=== PATIENT | male | born 1950 | race Caucasian/White ===

== ENCOUNTER 2024-04-18 10:49 | Outpatient (CLI) | payer MEDICARE, BC ==
[2024-04-18] MEDS ORDERED: GADOTERATE MEGLUMINE 7.5 MMOL/15 ML VIAL IV ONE (14:38)
== END 2024-04-18 23:59 | disposition home or self-care (01) ==
LOC: MRI 10:49
PROVIDERS: ATTEND Nurse Practitioner
DX: M51.27 Other intervertebral disc displacement, lumbosacral region (principal); M48.07 Spinal stenosis, lumbosacral region; M43.8X4 Other specified deforming dorsopathies, thoracic region; M51.46 Schmorl's nodes, lumbar region; G95.20 Unspecified cord compression; R53.1 Weakness; R20.2 Paresthesia of skin
CPT/HCPCS: 72157; 72158; A9575

== ENCOUNTER 2025-02-24 11:24 | Outpatient (CLI) | payer MEDICARE, BC ==
[2025-02-24 11:51] LABS: BILIRUBIN,URINE NEGATIVE (Neg); COLOR,URINE YELLOW (Yellow); GLUCOSE, URINE NEGATIVE (Neg); KETONES,URINE 40 mg/dl (Neg); LEUKOCYTE ESTERASE ,URINE MODERATE (Neg); NITRITES, URINE POSITIVE (Neg); OCCULT BLOOD,URINE SMALL (Neg); PROTEIN,URINE 30 mg/dl (Neg); UROBILINOGEN,URINE 0.2 E.U/dL (0.2-1.0)
[2025-02-24 11:56] LABS: UA COLLECTION TYPE NON-SPECIFIED
[2025-02-24 11:57] LABS: CLARITY,URINE SLIGHTLY CLOUDY (Clear)
[2025-02-24 11:58] LABS: BACTERIA,URINE 3+ /HPF (Neg); SQUAMOUS EPITHELIAL CELL,UR FEW /LPF (FEW); WBC,URINE TNTC /HPF (0-4)
[2025-02-24 11:59] LABS: WBC CLUMPS,URINE FEW /HPF (NEGATIVE)
== END 2025-02-24 23:59 | disposition home or self-care (01) ==
LOC: LAB 11:24
PROVIDERS: ATTEND Family Medicine
DX: N39.0 Urinary tract infection, site not specified (principal)
CPT/HCPCS: 81001; 87088

== ENCOUNTER 2025-02-26 13:57 | Inpatient (IN) | payer MEDICARE, BC ==
[~2025-02-26] VITALS: Ht 172.7 cm; Wt 58.0 kg
[2025-02-26 14:29] LABS: LEUKOCYTE ESTERASE ,URINE MODERATE (Neg); NITRITES, URINE POSITIVE (Neg); OCCULT BLOOD,URINE MODERATE (Neg)
--- NOTE | 2025-02-26 14:31 | RADIOLOGY REPORT ---
EXAM: DI CHEST,SINGLE VIEW Indication: sepsis alert Technique: Single frontal view of the chest was obtained Comparison: None FINDINGS: Lines and Tubes: None Lungs: No focal consolidation. Pleura: No effusion. No pneumothorax. Cardiomediastinal contours: Unremarkable Bones: No acute osseous abnormality. IMPRESSION: No acute cardiopulmonary disease.
[2025-02-26 14:33] LABS: UA COLLECTION TYPE FOLEY CATH
[2025-02-26 14:35] LABS: CAL OXALATE CRYSTALS FEW /HPF (NEGATIVE); SQUAMOUS EPITHELIAL CELL,UR FEW /LPF (FEW); WBC CLUMPS,URINE MODERATE /HPF (NEGATIVE)
[2025-02-26 14:35] LABS: MEAN PLATELET VOLUME 6.6 FL (7.4-10.4); RED CELL DISTRIBUTION WIDTH 18.0 % (11.5-14.5)
[2025-02-26 14:46] LABS: CREATININE 1.14 MG/DL (0.60-1.10); TOTAL CARBON DIOXIDE 26.3 MMOL/L (24-32); eCRCL 42 ML/MIN; eGFR 62 ML/MIN
--- NOTE | 2025-02-26 15:52 | Physician Documentation ---
History of Present Illness ~ Chief Complaint: Urinary Symptoms Stated Complaint: ALOC Time Seen by MD: 14:44 Mode of Arrival: EMS HPI History, review of systems, physical examination are limited secondary to clinical condition This is a 74-year-old gentleman with a history of recurrent UTIs and inguinal Rosario catheter who comes in for evaluation of altered mental status and positive UTI of the outside facility, however he is not on antibiotics because they are waiting for the culture. The gentleman himself tells me that he feels tired. He denies any headache, chest pain, difficulty breathing, nausea, vomiting, diarrhea, black stools or blood per rectum. Record review indicates that he is on Xarelto for paroxysmal AFib and does have history of anemia. Medication Reconciliation Allergies: Coded Allergies: No Known Allergies (Unverified , 02/26/25) Past Medical History Smoking Status: Never smoker Review of Systems ROS Limited as above Physical Exam Vital Signs: Temperature: 97.8, Source: Oral, Heart Rate: 81, Respiratory Rate: 17, BP: 124/82, Pulse Oximetry: 96, Weight: 54.000 Oxygen Flow Rate: 0 Physical Exam GENERAL: Awake and alert and oriented to self, no apparent distress, cachectic and very pale appearing, answers questions to the best of his ability of, follows commands appropriately. Examined in bed 6. HEENT: Atraumatic, normocephalic, pupils equal, extraocular muscles intact, sclerae anicteric, mucus membranes moist, oropharynx is clear, no stridor. NECK: supple, full active range of motion, trachea midline, no thyromegaly, no lymphadenopathy, no JVD. CARDIOVASCULAR: regular rate/rhythm, no murmurs/gallops/rubs, Pulses are 2+ in all extremities and symmetric. Capillary refill less than 2 seconds. PULMONARY: Nonlabored, good air movement ,no respiratory distress, speaking in full sentences, clear to auscultation bilaterally, no wheezing, no ronchi, no rales, no accessory muscle use. GASTROINTESTINAL: Soft, non-tender, non-distended, normal active bowel sounds, no organomegaly, no pulsatile masses, no CVA tenderness. NEUROLOGIC: Awake with a altered mental status. Normal facial symmetry. Moves bilateral upper extremities symmetrically and with purpose. Lower extremities with contracted. No truncal ataxia. Speech is fluid without evidence of dysarthria or aphasia, no focal deficits appreciated. MUSCULOSKELETAL: There is full range of motion of all extremities. There is no joint pain or joint swelling or joint erythema. There is no muscle pain or tenderness or swelling. EXTREMITIES: warm, well-perfused, no cyanosis, no clubbing, no edema, no acute deformities. Skin: warm, dry, no rashes or lesions, no jaundice, no petechiae orpurpura. No ecchymosis. PSYCHIATRIC: Flat affect Progress Results/Orders Results/Orders Orders - LE YUSUF DO Culture Blood (02/26/25 14:05) Chest,Single View (02/26/25 14:13) Monitor (02/26/25 14:05) Saline Lock (02/26/25 14:05) Procalcitonin (02/26/25 14:05) Cult Urine + [employer] [address] [employer] (02/26/25 14:36) Type And Screen (02/26/25 15:02) Lrpc - No Active Bleeding (02/26/25 15:38) * Oxygen Saturation Check* (02/26/25 15:38) * Iv Access / Saline Lock * (02/26/25 15:38) Addional Order(S) (02/26/25 15:38) Transfusion Informed Consent (02/26/25 15:38) Ceftriaxone/T0n-Qmqwmyen 1gm (Rocephin 1 (02/26/25 15:40) Page Hospitalist (02/26/25 15:38) Fill Out Med Reconciliation (02/26/25 15:38) Completed Orders - LE YUSUF DO Cbc/Diff (02/26/25 14:05) Chest,Single View (02/26/25 14:13) BMP (02/26/25 14:05) Lacticsepsis (02/26/25 14:05) Ua W/Microscopic, Cult If Ind (02/26/25 14:18) Vital Signs 02/26/25 02/26/25 14:06 14:59 Temp 97.8 Pulse 81 Resp 16 17 B/P (MAP) 124/82 Pulse Ox 96 O2 Flow Rate 0 Laboratory Tests Test 02/26/25 14:18 02/26/25 14:21 Urine Specimen Description Rosario cath Urine Color Yellow Urine Clarity Cloudy Urine pH 5.5 Urine Specific [place] >=1.030 Urine Protein Trace Urine Glucose (UA) Negative Urine Ketones 40 H Urine Occult Blood Moderate H Urine Nitrite Positive H Urine Bilirubin Negative Urine Urobilinogen 0.2 Urine Leukocyte Esterase Moderate H Urine RBC 3-10 Urine WBC Tntc H Urine WBC Clumps Moderate Urine Squamous Epithelial Cells Few Urine Calcium Oxalate Crystals Few Urine Bacteria 2+ Urine Culture Indicated Indicated Volume Urine Centrifuged 6 ml Urine Comment Low volume White Blood Count 6.7 Red Blood Count 1.61 L Hemoglobin 4.7 *L Hematocrit 13.8 *L Mean Corpuscular Volume 85.7 Mean Corpuscular Hemoglobin 29.3 Mean Corpuscular Hemoglobin Concent 34.2 Red Cell Distribution Width 18.0 H Platelet Count 499 H Mean Platelet Volume 6.6 L Neutrophils (%) (Auto) 59.0 Lymphocytes (%) (Auto) 30.2 Monocytes (%) (Auto) 7.4 Eosinophils (%) (Auto) 2.6 Basophils (%) (Auto) 0.8 Neutrophils # (Auto) 4.0 Lymphocytes # (Auto) 2.0 Monocytes # (Auto) 0.5 Eosinophils # (Auto) 0.2 Basophils # (Auto) 0.1 CBC Comment Sodium Level 134 L Potassium Level 3.6 Chloride Level 98 L Carbon Dioxide Level 26.3 Anion Gap 10 Blood Urea Nitrogen 17 Creatinine 1.14 H Estimated GFR/1.73 m2 62 BUN/Creatinine Ratio 14.9 Glucose Level 92 Lactic Acid Level 0.5 Calcium Level 9.2 Albumin 1.8 L Chemistry Comments Microbiology Date/Time Source Procedure Growth Status 02/26/25 14:36 Urine Rosario Cath Urine Culture - Preliminary Culture received. Resulted Medical Decision Making Findings Facility Status: ED [facility], [facility] process The plan was discussed with the patient, who demonstrates clear understanding of the plan and is in agreement with the plan unless otherwise noted in the chart. All questions have been answered, all concerns were addressed unless otherwise documented. I was available throughout their ED stay for frequent reassessment and questio ns. Differential Diagnoses (considered and possible or likely): [Urinary tract infection, pyelitis, pyelonephritis, occult bacteremia, hypoglycemia, electrolyte derangement, given how pale he has some somewhat worried about anemia requiring transfusion, high-output heart failure.] ??Differential Diagnoses (considered and unlikely, not requiring evaluation currently): [No reported trauma, no new lateralizing signs.] MDM Data Please see HPI for the following: Independent Historians and external Records Review. Historian: Limited information for patient Independent Historians: ?[Record review] Medication Management: [Reviewed medication list] Social History and determinants: [Reviewed] Please see the body of the note for the following: Any independent interpreta tions of ECG, imaging studies. All vitals signs/haemodynamics, ordered tests were independently reviewed and interpreted by myself. Nursing triage complaint and vitals reviewed, additional nursing notes were reviewed as available and I agree unless otherwise noted or documented in contradiction in the chart Vital Signs: Independently reviewed Labs: Independently interpreted Imaging: Independently interpreted Old Medical Records: Independently reviewed, see HPI for relevant summary and information Pulse Oximetry: [98%] interpreted as [normal on room air] by me [Lockstitch Tunnel Elastic Operator: [Regular Rate, Regular rhythm, no ectopy, NSR] reviewed and interpreted by me] Additionally notably showing: [Hemodynamics reviewed. The patient isn't febrile, not tachycardic, no evidence of hypoxia or respiratory distress. CBC shows critical anemia requiring transfusion. Metabolic panel notable for mild elevation of creatinine. UA is limited with a positive for UTI.] Tests considered but not ordered include: [Advanced imaging has been considerably does not appear to be necessary] EGD and colonoscopy can be done on an inpatient basis to investigate his critical anemia Social Determinants of Health Impact: Patient was evaluated in [facility], or [facility] [place] to healthcare due to below par ratio of patient to medical providers. [] Comorbid Conditions Impacting Present Evaluation and Care/Treatment: [Multiple, see list] Management Discussions with other Healthcare Providers: [Hospitalist regarding admission] Treatment and Disposition Medication Management (Given or considered): [Transfusion, antibiotics]. See EMR for details Consideration for Hospitalization/Escalation/Deescalation of Care: Admission for inpatient management has been considered, and is necessary for further management of his altered mental status, UTI, critical anemia requiring transfusion and investigating the source of blood loss ?ED Course:?[No clinical deterioration] ?Shared decision making:?[] Code status:?FULL Please see the full Electronic Medical Record for full details of nursing documentation, medications list, other records of complete past medical history and conditions, vital signs, laboratory studies, and any radiologic study interpretations by radiologists. Portions of this note were completed using dragon dictation software and as a result there may exist minor errors in spelling. I have reviewed elements of past family and social history and agree as included in note. Departure Disposition: 09 ADMITTED INPATIENT Admitted to Inpatient Unit: to hospitalist Impression: Primary Impression: Acute urinary tract infection Additional Impressions: Anemia requiring transfusions Altered mental status Anticoagulated on Xarelto Condition: Improved Referrals: NO PRIMARY CARE PROVIDER (PCP) Critical Care Note Critical Care Note CRITICAL CARE TIME: [45] minutes Treatments/Evaluations: Close monitoring and treatment of unstable vital signs, cardiorespiratory, and neurologic status, while maintaining tight balance of fluid, respiratory, and cardiac interventions. This time includes discussing the case with the patient and the patients family. This time does not include all procedures stated elsewhere in this record. This time also includes reviewing old records, labs and radiological studies. This time includes examining and re- examining the patient. Additionally, this time also includes arranging care with admitting and consulting physicians. Signature Scribe Signature: No scribe Attestation: This note accurately reflects clinical decisions, work performed by myself, DO PARAMJIT Hooks NICHOLAS M DO Feb 26, 2025 15:52
[2025-02-26] MEDS: CefTRIAXone/D5W-Rocephin 1gm 50 ML IV ONE (16:02)
--- NOTE | 2025-02-26 16:03 | ELECTROCARDIOGRAPH REPORT ---
[facility] Test Date: 2025-02-26 Test Time: 16:00:23 Pat Name: CORA VASQUES Department: [facility] Patient ID: [id number] Room: [place] [address] Gender: M Oral And Maxillofacial Surgery: : 1950 Requested By: LE YUSUF Order Number: [id number] Reading MD: Dr. Addison Davidson Measurements Intervals [place] Rate: 89 P: 56 VA: 139 QRS: -69 QRSD: 80 T: 43 QT: 363 QTc: 442 Interpretive Statements Sinus rhythm Left anterior fascicular block Abnormal R-wave progression, early transition Borderline T wave abnormalities Electronically Signed On 02-27-2025 9:16:[address] Addison Davidson Please click the below link to view image of tracing.
[2025-02-26 16:21] LABS: PRO BRAIN NATRIURETIC PEPTIDE 224 PG/ML (0-450)
[2025-02-26 16:38] VITALS: BP 136/88; PULSE 93; RESP 12; TEMP 98.4
[2025-02-26] MEDS ORDERED: magnesium hydroxide 30ml (MOM) UD suspension PO PRN (16:55)
[2025-02-26] MEDS ORDERED: mag hydrox/Alum hydrox/simeth 30ml oral suspension PO PRN (16:55)
[2025-02-26] MEDS ORDERED: magnesium sulf-water 2g/50mL 50 ML IV PRN (16:55)
[2025-02-26] MEDS ORDERED: magnesium Cl slow-release 64mg tablet PO PRN (16:55)
[2025-02-26] MEDS ORDERED: potassium Cl 20 mEq SR tablet PO PRN (16:55)
[2025-02-26] MEDS ORDERED: magnesium sulf-water 4G/100mL 100 ML IV PRN (16:55)
[2025-02-26] MEDS ORDERED: ondansetron/PF 4mg/2ml inj IV PRN (16:55)
[2025-02-26 16:59] VITALS: BP 120/67; PULSE 88; RESP 18; TEMP 97.7
--- NOTE | 2025-02-26 17:08 | CONSULTATION REPORT - RESIDENT ---
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 According to history provided by his [id number], Sonya ( Contact Number: [phone]), his confusion began acutely a few days prior and has progressively worsened, and was transferred for further evaluation. The patients baseline mental status was described as alert and oriented to person, though requiring assistance with all activities of daily living. The patients history of paraplegia began approximately one year ago when he experienced acute paralysis of the lower extremities, later attributed to a spinal cord infarction. Three months following this event, he was diagnosed with an appended spinal cord, confirmed through imaging, and underwent surgical intervention at [facility]. Postoperatively, the patient developed permanent incontinence of both stool and urine, requiring the placement of a chronic indwelling urinary catheter. The incontinence has been complicated by recurrent UTIs, typically managed with antibiotics during his subsequent stays at long-term care facilities, including [facility] and [facility]. On presentation, the patient was found to have a hemoglobin of 4.7 g/dL, significantly below his baseline. A stool occult blood test was positive, raising concern for gastrointestinal bleeding. Patients stools have been brown and formed, without visible melena or hematochezia. Sonya also described the patients challenges, particularly related to managing his chronic catheter and recurring UTIs. Despite treatment, his altered mental status was episodic and urinary symptoms worsened. On arrival, the patient was altered but arousable, with dry mucous membranes, tachycardia, and low blood pressure, consistent with anemia and possible dehydration. No overt signs of infection or sepsis were noted. 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 Paraplegia Urinary and fecal incontinence Recurrent UTIs, CAUTI Insomnia Hyperlipidemia Possible cauda equina syndrome TIA Past Surgical History Surgical History Comment Spinal cord ependymoma resection Patient was altered and could not report any history of surgeries Past Social History Social History Comment Could not be gathered as patient was altered ROS ROS Could not complete review of systems Exam Vitals: Vital Signs Date Time Temp Pulse Resp B/P (MAP) Pulse Ox O2 Delivery O2 Flow Rate FiO2 02/26/25 16:38 98.4 93 12 136/88 02/26/25 16:33 97 0 General: Awake , thin built, in apparent distress HEENT: Atraumatic, normocephalic, EOMI, anicteric sclera ; pale conjunctiva Neck: Trachea midline. Supple, full range of motion, no JVD Cardiac: Irregular rhythm rate with no murmurs all over the precordium. Respiratory: Equal breath sounds bilaterally, no tachypnea, no wheezing ,rub or rales, Chest wall is symmetric and without deformity. Gastrointestinal: Abdomen symmetric, non-distended, soft, non-tender, normal bowel sounds x4 quadrant, normoactive, no hepatosplenomegaly Musculoskeletal: Bilateral lower extremity: No pedal edema, no cyanosis, contractures present, no sensations, atrophy noted, power 0/5, tone 0 Neurological: Could not be performed Diagnostic Data Last Recorded Lab Results: 02/26/25 1421 02/26/25 1421 Additional Plan 1. Altered Sensorium Likely multifactorial: symptomatic anemia (Hb 4.7 g/dL), ongoing infection (UTI), and possible dehydration. No focal neurologic deficits to suggest acute stroke or intracranial pathology. Diagnostics: Monitor CBC, CMP,and consider head CT if no improvement or neurologic symptoms emerge. Management: Supportive care with intravenous hydration and correction of anemia. Continue close neurologic monitoring. 2. Symptomatic Anemia Possible upper versus lower GI bleed Critical hemoglobin of 4.7 g/dL with positive stool occult blood test suggests active gastrointestinal bleeding, though no overt melena or hematochezia noted. Anemia exacerbated by chronic illness and possible nutritional deficiencies. Transfusion: Continue packed red blood cell transfusions to maintain Hb >7 g/dL. Monitor post-transfusion hemoglobin. Plan for esophagogastroduodenoscopy tomorrow to identify the source of bleeding. Colonoscopy if EGD is negative Initiate pantoprazole 40 mg IV BID for suspected upper GI source. Hold Xarelto for now 3. Recurrent UTIs Chronic indwelling catheter is a likely source. Current UTI evidenced by symptomatic presentation, positive urinalysis, and recurrent episodes in history. High risk for resistant organisms given recurrent antibiotic use. ceftriaxone or piperacillin-tazobactam pending urine culture results. Adjust based on sensitivities. Replace the indwelling catheter. AFib Hyperlipidemia Diabetes mellitus Insomnia TIA Management per hospitalist team GI recommendations: Daily CBC and CMP monitoring. Regular vital sign monitoring Transfuse to maintain hemoglobin greater than 7 Code status: Full code (also confirmed with [id number]) DVT prophylaxis: Panfilo Limon MD Internal Medicine Resident, PGY-1 Date of Service: Feb 26, 2025 Billing Provider: ELLIOTT KIM MD, GAURAV, RES Feb 26, 2025 17:08
[2025-02-26 17:27] LABS: INR 1.2 INR
[2025-02-26] MEDS ORDERED: CHOL20003 PO (18:15)
[2025-02-26] MEDS ORDERED: OMEP40CA21 PO (18:15)
[2025-02-26] MEDS ORDERED: DULO60CA65 PO (18:15)
[2025-02-26] MEDS ORDERED: TAMS-55 PO (18:15)
[2025-02-26] MEDS ORDERED: RIVA10TA PO (18:15)
[2025-02-26] MEDS ORDERED: LIDOCAINE TP (18:15)
[2025-02-26] MEDS ORDERED: SOD CHLORIDE PO (18:15)
[2025-02-26] MEDS ORDERED: FLUC200T93 PO (18:15)
[2025-02-26] MEDS ORDERED: [UNRECOGNIZED DRUG - OTHER] PO (18:15)
[2025-02-26] MEDS ORDERED: PREG25CA19 PO (18:15)
[2025-02-26] MEDS ORDERED: BUSP5TAB3 PO (18:15)
[2025-02-26] MEDS ORDERED: ASPI-1265 PO (18:15)
[2025-02-26] MEDS ORDERED: METH1TAB32 PO (18:15)
[2025-02-26] MEDS ORDERED: [UNRECOGNIZED DRUG - CODE] PO (18:15)
[2025-02-26] MEDS ORDERED: MINERALS PO (18:15)
[2025-02-26] MEDS ORDERED: SENN-302 PO (18:15)
[2025-02-26] MEDS ORDERED: POLY510P31 PO (18:15)
[2025-02-26] MEDS ORDERED: HYDR-3964 PO (18:15)
[2025-02-26] MEDS ORDERED: FOLI1TAB27 PO (18:15)
[2025-02-26] MEDS ORDERED: MELA3TAB39 PO (18:15)
[2025-02-26] MEDS ORDERED: ROSU20TA98 PO (18:15)
[2025-02-26 18:41] VITALS: BP 152/94; PULSE 98; RESP 11; TEMP 98; O2SAT 100
[2025-02-26 18:51] LABS: EOSINOPHILS % (MANUAL) 2.0 % (0-6); LYMPHOCYTES % (MANUAL) 19.0 % (21-51); MONOCYTES % (MANUAL) 9.0 % (2-12); NEUTROPHILS % (MANUAL) 70.0 % (42-75); PLATELET ESTIMATE INCREASED
[2025-02-26] MEDS: normal saline 1000ml 1,000 ML IV ONE (19:21)
[2025-02-26] MEDS: K and/or MAG REPLACEMENT MC SCH (19:37)
--- NOTE | 2025-02-26 19:41 | HISTORY AND PHYSICAL-Residence ---
History & Physical Providers to CC Resident Creating Document: MARGUERITE CHAKRABORTY, RES ~ History of Present Illness Reason for Admit\Complaint: Anemia, UTI History of Present Illness The patient is a 74-year-old male with past medical history of anemia, depression, hyperlipidemia, paroxysmal AFib, lumbar spinal tumor, paralysis, who is a resident of [facility] facility for concerns of altered mental status. Patient is confused and very hard of hearing. History could not be obtained from the patient. As per the ED physician's records and GI consultation record, confusion progressed over last few days. On baseline, patient is alert and oriented but required assistance with ADLs. Patient is paraplegic and has chronic Rosario's. He has a history of recurrent UTIs. The patient is also on Xarelto for atrial fibrillation. Allergies: Coded Allergies: No Known Allergies (Unverified , 02/26/25) Home Medications Home Medications Active Reported Melatonin 3 Mg Tablet 3 Tab PO HS Xarelto (Rivaroxaban) 10 Mg Tablet 1 Tab PO DAILY [sod chloride 1 gm] 1 Tab PO DAILY Rosuvastatin Calcium 20 Mg Tablet 1 Tab PO HS Fluconazole 200 Mg Tablet 2 Tab PO DAILY take for 10 days, unk when pt started med Duloxetine HCl 60 Mg Capsule.dr 1 Cap PO DAILY Hydrocodon-Acetaminophen 5-325 (Hydrocodone Bit/Acetaminophen) 5 Mg-325 Mg Tablet 1 Tab PO Q6H PRN Vitamin D3 (Cholecalciferol (Vitamin D3)) 50 Mcg (2000 Unit) Tablet 1 Tab PO BID Flomax* (Tamsulosin HCl) 0.4 Mg Cap.sr.24h 1 Cap PO BID Senna Plus 8.6-50 mg Tablet (Sennosides/Docusate Sodium) 8.6 Mg-50 Mg Tablet 1 Tab PO DAILY Pregabalin 25 Mg Capsule 1 Cap PO BID [id number] (Polyethylene Glycol 3350) 17 Gram/Dose Powder 17 Gm PO DAILY Oyster Shell Calcium +D Tablet (Calcium Carbonate/Vitamin D3) 500 Mg Calcium-5 Mcg (200 Unit) Tablet 1 Tab PO DAILY [onedailytab/minerals] 1 Tab PO DAILY Methenamine Hippurate 1 Gram Tablet 1 Tab PO BID [lidocaine PA pad4%] 2 Patch TP QAM Folic Acid* (Folic Acid) Y Tab 1 Tab PO DAILY Buspar* (Buspirone HCl) 5 Mg Tablet 1 Tab PO BID Aspirin 81 Mg Tab.chew 1 Tab PO DAILY Prilosec (Omeprazole) 40 Mg Capsule 1 Cap PO DAILY Past Medical History Past Medical History AFib Diabetes mellitus Constipation BPH 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 Paraplegia Urinary and fecal incontinence Recurrent UTIs, CAUTI Insomnia Hyperlipidemia Possible cauda equina syndrome TIA Past Surgical History Surgical History Comment Spinal cord ependymoma resection Past Social History Social History Comment Resident of [facility] ROS ROS Could not be obtained Exam Vitals: Vital Signs Date Time Temp Pulse Resp B/P (MAP) Pulse Ox O2 Delivery O2 Flow Rate FiO2 02/26/25 18:41 98.0 98 11 152/94 (113) 100 Room Air 02/26/25 17:27 0 General: Elderly male, very frail appearing, alert but confused, not in acute distress Head: Normocephalic with an atraumatic Eyes: Pupils- 3mm, reacting to light, conjunctiva- anicteric, pale Nose and throat: No polyps, septum- normal, no mucosal ulcers Neck: Supple, no lymphadenopathy, no carotid bruit Respiratory: No use of accessory muscles of respiration, Bilateral normal vesiscular breath sounds heard. No wheeze, rhochi or creps Cardiac: S1-S2 heard, rhythm regular, no gallop/murmur Abdomen: non distended, no tenderness, no organomegaly, bowel sounds - heard Extremities: no clubbing, no pedal edema, stiff with contractures Skin: warm and dry, no rash, no purpura Neuro: Could not be performed Diagnostic Data Last Recorded Lab Results: 02/26/25 1421 02/26/25 1421 Diagnostic Data: Laboratory Tests Test 02/26/25 14:21 Prothrombin Time 12.2 SECONDS (9.0-12.0) H INR International Normalized Ratio 1.2 INR Coagulation Comments Advance Care Planning Advanced Care plannin - 30 Minutes Additional Plan A 74-year-old male with past medical history of AFib, recurrent UTIs, lumbar spinal tumor, anemia, was transferred to the ED for concerns of altered mental status. He is being admitted into the hospital for further evaluation and management. Plan: GI bleed likely upper GI Severe symptomatic anemia HB 4.7. 3 units of PRBC ordered in the ED. Started him on Protonix at 8 mg/hour. Stool occult positive. GI, Dr. Hess consulted. Endoscopy tomorrow. NPO from midnight. Q.4 H H&H monitoring. Follow up with iron studies, ESR, peripheral smear, haptoglobin and LDH. Acute metabolic encephalopathy Complicated UTI Urinalysis positive for leukocyte esterase, nitrites. Follow up with urine cultures. Continue IV ceftriaxone. IV fluids 1 L bolus and 100 mL/hour. No flank tenderness, possibly no pyelonephritis. MEETA likely secondary to vasomotor nephropathy Creatinine 1.14. Continue IV fluids and monitor. Paroxysmal atrial fibrillation Currently in sinus rhythm. Hold Xarelto. Hyperlipidemia On rosuvastatin 20 mg daily. Continue atorvastatin here. Depression Continue buspirone, duloxetine after medication reconciliation. Code Status: Full code, POLST papers at bedside DVT Prophylaxis: SCDs Analgesia/Sedation: Morphine Lines/Tubes: PIV GI Prophylaxis: Protonix Nutrition: Bedside swallow, heart healthy diet, NPO from midnight PT: Ordered Prognosis: Guarded Disposition: We will admit the patient into [facility]. Continue H&H monitoring. NPO from midnight and upper GI endoscopy tomorrow. Marguerite Chakraborty MD Internal Medicine Resident PGY-1 Date of Service: Feb 26, 2025 Billing Provider: RENA JONES MD,MARGUERITE DUCKWORTH, RES Feb 26, 2025 19:41
[2025-02-26 19:45] LABS: CREATININE 1.27 MG/DL (0.60-1.10); TOTAL CARBON DIOXIDE 28.5 MMOL/L (24-32); eCRCL 38 ML/MIN; eGFR 55 ML/MIN
[2025-02-26 19:47] LABS: % IRON SATURATION 26 % (11-46)
[2025-02-26 19:51] LABS: OCCULT BLOOD STOOL POSITIVE (Neg)
[2025-02-26 19:57] LABS: LACTATE DEHYDROGENASE 93 U/L (85-227); MEAN PLATELET VOLUME 7.0 FL (7.4-10.4); RED CELL DISTRIBUTION WIDTH 17.2 % (11.5-14.5)
[2025-02-26 20:00] VITALS: RESP 15; O2SAT 100
[2025-02-26] MEDS: lactobacillus rhamnosus 10,000 MMU CELLS/CAPSULE PO SCH (20:00)
[2025-02-26] MEDS: normal saline 1000ml 1,000 ML IV SCH (20:00)
[2025-02-26] MEDS: docusate sod 100mg capsule PO SCH (20:00)
[2025-02-26 20:18] LABS: EOSINOPHILS % (MANUAL) 3 % (0-6); LYMPHOCYTES % (MANUAL) 24 % (21-51); MONOCYTES % (MANUAL) 6 % (2-12); NEUTROPHILS % (MANUAL) 67 % (42-75); PLATELET ESTIMATE NORMAL
[2025-02-26 22:00] VITALS: BP 165/93; PULSE 75; RESP 15; TEMP 97.2; O2SAT 100
[2025-02-26] MEDS: pantoprazole 40MG/NS 100ML BAG 100 ML IV ONE (22:41)
[2025-02-26] MEDS: pantoprazole 40MG/NS 100ML BAG 100 ML IV SCH (22:46)
[2025-02-26 23:00] VITALS: BP 150/70
[2025-02-27] VITALS (12 sets, daily range): BP systolic 139–163; BP diastolic 77–94; PULSE 67–84; RESP 8–21; TEMP 97–98.6; O2SAT 94–99
[2025-02-27 00:14] LABS: MEAN PLATELET VOLUME 6.6 FL (7.4-10.4); RED CELL DISTRIBUTION WIDTH 17.1 % (11.5-14.5)
[2025-02-27 03:29] LABS: MEAN PLATELET VOLUME 6.7 FL (7.4-10.4); RED CELL DISTRIBUTION WIDTH 17.5 % (11.5-14.5)
[2025-02-27 03:43] LABS: CHOL/HDL RATIO 2.8 (0.00-4.99); CREATININE 1.07 MG/DL (0.60-1.10); LDL CHOLESTEROL 47 MG/DL (50-100); TOTAL CARBON DIOXIDE 25.0 MMOL/L (24-32); eCRCL 45 ML/MIN; eGFR 67 ML/MIN
[2025-02-27] MEDS: pantoprazole 40MG/NS 100ML BAG 100 ML IV ONE (03:51)
[2025-02-27 07:48] LABS: MEAN PLATELET VOLUME 7.1 FL (7.4-10.4); RED CELL DISTRIBUTION WIDTH 17.7 % (11.5-14.5)
[2025-02-27] MEDS: duloxetine 30mg CAPSULE.DR PO SCH (08:00)
[2025-02-27] MEDS: lactose-reduced food (Ensure Enlive) - 237ml bottle PO SCH (08:00)
[2025-02-27] MEDS: CefTRIAXone/D5W-Rocephin 1gm 50 ML IV SCH (09:46)
[2025-02-27] MEDS: sodium ferric gluc complex inj 125 MG in normal saline 100ml IV soln 100 ML IV SCH (10:53)
[2025-02-27 11:52] LABS: MEAN PLATELET VOLUME 6.9 FL (7.4-10.4); RED CELL DISTRIBUTION WIDTH 17.4 % (11.5-14.5)
[2025-02-27] MEDS ORDERED: propofol inj 20 ML IV ONE (14:44)
--- NOTE | 2025-02-27 15:26 | PROGRESS NOTE- Residence ---
Progress Note - Resident Providers to CC Resident Creating Document: YESI FOSTER RES ~ Antibiotic Timeout Antibiotic Ordered?: Yes Subjective Patient was seen and examined at bedside, was altered. Was unable to provide any comprehensive history. No acute overnight symptoms. Hemoglobin was stable at 9.3. EGD today by Dr. Salguero. Objective Vital Signs Date Time Temp Pulse Resp B/P (MAP) Pulse Ox O2 Delivery O2 Flow Rate FiO2 02/27/25 14:40 80 15 02/27/25 10:33 97.8 151/93 (112) 97 Room Air 02/27/25 08:00 0.0 Result Diagram: 02/27/25 1124 02/27/25 0315 Awake , thin built, in apparent distress HEENT: Atraumatic, normocephalic, EOMI, anicteric sclera ; pale conjunctiva Neck: Trachea midline. Supple, full range of motion, no JVD Cardiac: regular rhythm rate with no murmurs all over the precordium. Respiratory: Equal breath sounds bilaterally, no tachypnea, no wheezing ,rub or rales, Chest wall is symmetric and without deformity. Gastrointestinal: Abdomen symmetric, non-distended, soft, non-tender, normal bowel sounds x4 quadrant, normoactive, no hepatosplenomegaly Musculoskeletal: Bilateral lower extremity: No pedal edema, no cyanosis, contractures present, no sensations, atrophy noted, power 0/5, tone 0 Neurological: Could not be performed Coagulation Studies Laboratory Tests Test 02/26/25 14:21 Prothrombin Time 12.2 SECONDS (9.0-12.0) H INR International Normalized Ratio 1.2 INR Coagulation Comments Advance Care Planning Advanced Care plannin - 30 Minutes Assessment Assessment The patient is a 74-year-old male admitted for altered mental status, severe symptomatic anemia, and suspected gastrointestinal bleeding. His zaeuwhhi-hl-bdu reported altered mental sensorium, weakness and fatigue but denies having abdominal pain, nausea, vomiting, or black/tarry stools. No overt hematemesis or hematochezia has been observed. The patient has been compliant with NPO orders since midnight in preparation for endoscopy today. Plan Plan Labs: Hemoglobin: 9 g/dL post-transfusion (1 unit of PRBC in ED). (High possibility that the initial hemoglobin of 4.7 was incorrect) WBC: Normal. Creatinine: 1.12 mg/dL, improving with fluids. Urinalysis: Positive leukocyte esterase, nitrites. Imaging: No acute findings on chest X-ray. Metabolic encephalopathy secondary to recurrent UTIs Complicated UTI (CAUTI) (recurrent history) Outpatient records show Infection with Resistant Pseudomonas: History of positive blood cultures for candidemia Likely multifactorial: symptomatic anemia (Hb 4.7 g/dL), ongoing infection (UTI), and possible dehydration. No focal neurologic deficits to suggest acute stroke or intracranial pathology. Diagnostics: Monitor CBC, CMP,and consider head CT if no improvement or neurologic symptoms emerge. Management: Supportive care with intravenous hydration and correction of anemia. Continue close neurologic monitoring. Chronic indwelling catheter is a likely source. Current UTI evidenced by symptomatic presentation, positive urinalysis, and recurrent episodes in history. Replace indwelling catheter if necessary. Positive urinalysis with leukocyte esterase and nitrites; urine cultures pending. History of meropenem-resistant Pseudomonas infection per ID. Started on ceftolozane-tazobactam per Dr. Tol[place], ID. Per ID, patient was treated with fluconazole at [facility] for candidemia Repeat blood cultures ordered here Severe Symptomatic Anemia: Likely secondary to upper GI bleed. Positive stool occult blood supports a gastrointestinal source. Stable post-transfusion with hemoglobin trending upwards. Suspected GI Bleed: Endoscopy today to identify and potentially treat the source. Plan: EGD today to evaluate for upper GI bleed. Continue pantoprazole infusion. Daily CBC and CMP monitoring. Transfuse PRBCs as needed to maintain hemoglobin >7 g/dL. MEETA, prerenal- vasomotor nephropathy Improving with IV fluids. Other: Maintain supportive care with IV fluids at 100 mL/hour. Paroxysmal atrial fibrillation Gagan Vasc score 3 Currently in sinus rhythm. Hold Xarelto until further evaluation Hyperlipidemia On rosuvastatin 20 mg daily. Continue atorvastatin during his hospital stay here Depression Continue buspirone, duloxetine DVT Prophylaxis: Sequential compression devices (SCDs). Prognosis: Guarded. Disposition: Medical management for now. Await endoscopy results for further management. Yesi Foster MD Internal Medicine Resident, PGY-2 Date of Service: Feb 27, 2025 Billing Provider: RENA JONES MD, GAURAV, RES Feb 27, 2025 15:26
[2025-02-27] MEDS ORDERED: ceftolozone/tazobactam inj. 1.5 GM in normal saline 100ml IV soln 100 ML IV SCH (16:00)
[2025-02-27] MEDS: [UNRECOGNIZED DRUG - MIXTURE] IV SCH (16:53)
[2025-02-27 16:54] LABS: MEAN PLATELET VOLUME 7.0 FL (7.4-10.4); RED CELL DISTRIBUTION WIDTH 17.6 % (11.5-14.5)
[2025-02-27] MEDS: potassium Cl 40MEQ/1/2NS 520ml 520 ML IV PRN (16:55)
[2025-02-27] MEDS: NUT.TX.IMPAIRED DIGEST FXN (Ensure Clear) 237 ML PO SCH (18:00)
[2025-02-27 20:16] LABS: MEAN PLATELET VOLUME 6.9 FL (7.4-10.4); RED CELL DISTRIBUTION WIDTH 17.3 % (11.5-14.5)
[2025-02-27 23:15] LABS: MEAN PLATELET VOLUME 6.9 FL (7.4-10.4); RED CELL DISTRIBUTION WIDTH 17.5 % (11.5-14.5)
[2025-02-28] VITALS (8 sets, daily range): BP systolic 93–158; BP diastolic 53–96; PULSE 71–99; RESP 12–18; TEMP 96.9–98.8; O2SAT 94–100
[2025-02-28 03:07] LABS: CREATININE 0.97 MG/DL (0.60-1.10); TOTAL CARBON DIOXIDE 25.1 MMOL/L (24-32); eCRCL 53 ML/MIN; eGFR 75 ML/MIN
[2025-02-28] MEDS: potassium Cl 20 mEq SR tablet PO PRN (05:09)
[2025-02-28 06:34] LABS: MEAN PLATELET VOLUME 6.9 FL (7.4-10.4)
[2025-02-28 06:36] LABS: RED CELL DISTRIBUTION WIDTH 17.4 % (11.5-14.5)
[2025-02-28] MEDS: lactobacillus rhamnosus 10,000 MMU CELLS/CAPSULE PO SCH (08:00)
[2025-02-28 08:12] LABS: HAPTOGLOBIN 296 mg/dL (34-355)
[2025-02-28] MEDS: HYDROcodone/acetaminophen 5mg/325mg tablet PO PRN (09:04)
[2025-02-28 09:43] LABS: MEAN PLATELET VOLUME 6.9 FL (7.4-10.4); RED CELL DISTRIBUTION WIDTH 17.6 % (11.5-14.5)
--- NOTE | 2025-02-28 11:39 | PATHOLOGY REPORT ---
[facility] [address] [place] [address] SURGICAL PATHOLOGY REPORT CaseNumber: [id number] Surgeon:Heather Flores M.D. CLINICAL INFORMATION CLINICAL INFORMATION: Iron deficiency anemia secondary to chronic blood loss, melena. Duodenal mass, R/O malignancy. DIAGNOSIS DIAGNOSIS: A.SMALL BOWEL, DUODENAL BULB; BIOPSY - CONSISTENT WITH HETEROTOPIC GASTRIC MUCOSA. - NEGATIVE FOR DYSPLASIA AND CARCINOMA. DIAGNOSIS: B.STOMACH; BIOPSY - FUNDIC GLAND POLYP. DIAGNOSIS: C.STOMACH, ANTRUM; BIOPSY - NORMAL ANTRAL-TYPE GASTRIC MUCOSA. - NEGATIVE FOR INTESTINAL METAPLASIA. - NEGATIVE FOR H. PYLORI. MICROSCOPIC DESCRIPTION A. SMALL BOWEL, DUODENAL BULB MICROSCOPIC DESCRIPTION: 1 H&E stained slide is examined. It shows multiple fragments of villiform m ucosa composed of parietal cells and chief cells, underlying gastric foveolar type epithelium with mi ld reactive changes. 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 I do not see ba ckground normal duodenal mucosa. Endoscopic correlation is required. There is no evidence of dyspla jenny. B. STOMACH MICROSCOPIC DESCRIPTION: Performed. C. STOMACH, ANTRUM MICROSCOPIC DESCRIPTION: Reviewed is 1 H&E stained slide showing multiple levels of gastric antral-ty pe mucosa. I see no significant increase in acute or chronic inflammation. The glands are appropria tely spaced; I see no evidence of fibrosis. There is no evidence of dysplasia, intestinal metaplasia , or Helicobacter pylori. GROSS DESCRIPTION A. SMALL BOWEL, DUODENAL BULB GROSS DESCRIPTION: Received in a container of formalin labeled with the patient's name, number, and " duodenal bulb mass BX" are 4 pieces of cook 0.2-0.5 x 0.1 x 0.1 cm. The specimen is entirely submitted as A1. The time at which the specimen was removed was 1457. The time at which the specimen was place d in formalin was 1458. B. STOMACH GROSS DESCRIPTION: Received in a container of formalin labeled with the patient's name, number, and " gastric polyp" is a 0.3 cm piece of cook tissue. The specimen is entirely submitted as B1. The time at which the specimen was removed was 1456. The time at which the specimen was placed in formalin was 1 458. C. STOMACH, ANTRUM GROSS DESCRIPTION: Received in a container of formalin labeled with the patient's name, number, and " antrum BX" is a 0.4 x 0.2 x 0.1 cm piece of cook tissue. The specimen is entirely submitted as C1. The time at which the specimen was removed was 1455. The time at which the specimen was placed in formal in was 1458. Electronically signed by: Nilesh Pedroza, 02/28/2025 11:06:00 AM
[2025-02-28 14:01] LABS: ABSOLUTE RETICS # 29100 /CUMM (23000-93000)
--- NOTE | 2025-02-28 18:22 | PROGRESS NOTE- Residence ---
Progress Note - Resident Providers to CC Resident Creating Document: YESI FOSTER RES ~ Antibiotic Timeout Antibiotic Ordered?: No Subjective Patient was seen and examined at bedside, was alert and oriented today. In comparison to his admission, patient could answer questions and could also tell the name of his son. Had a conversation with patient's idtzxbkn-xp-xle who claims to continue full code status for now but however would reconsider her decision based on duodenal mass biopsy results. No acute overnight symptoms. Objective Vital Signs Date Time Temp Pulse Resp B/P (MAP) Pulse Ox O2 Delivery O2 Flow Rate FiO2 02/28/25 15:00 96.9 75 18 158/86 (110) 96 Room Air 02/28/25 08:00 0.0 Result Diagram: 02/28/25 0911 02/28/25 0245 Awake , thin built, in apparent distress HEENT: Atraumatic, normocephalic, EOMI, anicteric sclera ; pale conjunctiva Neck: Trachea midline. Supple, full range of motion, no JVD Cardiac: regular rhythm rate with no murmurs all over the precordium. Respiratory: Equal breath sounds bilaterally, no tachypnea, no wheezing ,rub or rales, Chest wall is symmetric and without deformity. Gastrointestinal: Abdomen symmetric, non-distended, soft, non-tender, normal bowel sounds x4 quadrant, normoactive, no hepatosplenomegaly Musculoskeletal: Bilateral lower extremity: No pedal edema, no cyanosis, contractures present, no sensations, atrophy noted, power 0/5, tone 0 Neurological: Could not be performed Coagulation Studies Laboratory Tests Test 02/26/25 14:21 Prothrombin Time 12.2 SECONDS (9.0-12.0) H INR International Normalized Ratio 1.2 INR Coagulation Comments Assessment Assessment The patient is a 74-year-old male admitted for altered mental status, severe symptomatic anemia, and suspected gastrointestinal bleeding. His hbeesrjz-lx-vpr reported altered mental sensorium, weakness and fatigue but denies having abdominal pain, nausea, vomiting, or black/tarry stools. No overt hematemesis or hematochezia has been observed. The patient has been compliant with NPO orders since midnight in preparation for endoscopy today. Plan Plan Labs: Hemoglobin: 9.1 today WBC: Normal. Creatinine: Normalized with fluids Urinalysis: Positive leukocyte esterase, nitrites. Imaging: No acute findings on chest X-ray. Metabolic encephalopathy secondary to recurrent UTIs Complicated UTI (CAUTI) (recurrent history) Outpatient records show Infection with Resistant Pseudomonas: History of positive blood cultures for candidemia at [facility] Likely multifactorial: symptomatic anemia (Hb 4.7 g/dL), ongoing infection (UTI), and possible dehydration. No focal neurologic deficits to suggest acute stroke or intracranial pathology. Diagnostics: Monitor CBC, CMP,and consider head CT if no improvement or neurologic symptoms emerge. Management: Supportive care with intravenous hydration and correction of anemia. Continue close neurologic monitoring. Chronic indwelling catheter is a likely source. Current UTI evidenced by symptomatic presentation, positive urinalysis, and recurrent episodes in history. Replace indwelling catheter if necessary. Positive urinalysis with leukocyte esterase and nitrites; urine cultures pending. History of meropenem-resistant Pseudomonas infection per ID. Started on ceftolozane-tazobactam per Dr. Tloedo, ID. Per ID, patient was treated with fluconazole at [facility] for candidemia Repeat blood cultures ordered here 02/28/2025: Blood cultures negative until now Continue ceftolozane and tazobactam Urine cultures at [facility] showed multidrug resistant Pseudomonas, only sensitive to tobramycin Severe Symptomatic Anemia: Likely secondary to upper GI bleed. Positive stool occult blood supports a gastrointestinal source. Stable post-transfusion with hemoglobin trending upwards. Suspected GI Bleed: Endoscopy today to identify and potentially treat the source. Plan: EGD today to evaluate for upper GI bleed. Continue pantoprazole infusion. Daily CBC and CMP monitoring. Transfuse PRBCs as needed to maintain hemoglobin >7 g/dL. 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 MEETA, prerenal- possibly vasomotor nephropathy Improving with IV fluids. Other: Maintain supportive care with IV fluids at 100 mL/hour. 02/28/2025: Resolved Paroxysmal atrial fibrillation Gagan Vasc score 3 Currently in sinus rhythm. Hold Xarelto until further evaluation 02/28/2025: Restarted Xarelto 10 mg daily from tomorrow, we will monitor hemoglobin post initiation of Xarelto Hyperlipidemia On rosuvastatin 20 mg daily. Continue atorvastatin during his hospital stay here Depression Continue buspirone, duloxetine Severe malnutrition Registered Dietitian Cristopher Dixon recommendations are ordered DVT Prophylaxis: Sequential compression devices (SCDs). Prognosis: Guarded. Disposition: Likely discharged in 1/2 days back to his nursing facility. Yesi Foster MD Internal Medicine Resident, PGY-2 Date of Service: Feb 28, 2025 Billing Provider: MARIO CASTRO DO Common Visit Codes: [id number] INP/OBS CARE(HIGH) YESI FOSTER, RES Feb 28, 2025 18:22 MARIO CASTRO DO Feb 28, 2025 18:55
[2025-03-01] VITALS (8 sets, daily range): BP systolic 123–150; BP diastolic 63–88; PULSE 70–89; RESP 14–20; TEMP 97.1–97.7; O2SAT 96–98
[2025-03-01 06:22] LABS: MEAN PLATELET VOLUME 6.9 FL (7.4-10.4); RED CELL DISTRIBUTION WIDTH 17.5 % (11.5-14.5)
[2025-03-01 06:46] LABS: CREATININE 0.92 MG/DL (0.60-1.10); TOTAL CARBON DIOXIDE 24.0 MMOL/L (24-32); eCRCL 56 ML/MIN; eGFR 80 ML/MIN
[2025-03-01] MEDS: rivaroxaban 10mg tablet PO SCH (10:47)
[2025-03-01] MEDS ORDERED: ceftolozone/tazobactam inj. 1.5 GM in normal saline 100ml IV soln 100 ML IV SCH (13:40)
[2025-03-01] MEDS: [UNRECOGNIZED DRUG - MIXTURE] IV SCH (16:44)
--- NOTE | 2025-03-01 16:52 | PROGRESS NOTE- Residence ---
Progress Note - Resident Providers to CC Resident Creating Document: YESI FOSTER RES ~ Antibiotic Timeout Antibiotic Ordered?: Yes Subjective Patient was seen and examined at bedside, was alert and oriented today. Patient claims that he wanted to speak to his family. Brother was at bedside, patient understands that he had urinary tract infection and also explained that he had developed paraplegia year ago and is well aware of his condition. Brother claims that they are searching for a different facility and did not want [facility] Objective Vital Signs Date Time Temp Pulse Resp B/P (MAP) Pulse Ox O2 Delivery O2 Flow Rate FiO2 03/01/25 09:13 16 03/01/25 08:00 98 Room Air 0.0 03/01/25 06:30 82 03/01/25 02:00 97.1 148/80 (102) Result Diagram: 03/01/25 0604 03/01/25 0604 Awake , thin built, not in distress today HEENT: Atraumatic, normocephalic, EOMI, anicteric sclera ; pale conjunctiva Neck: Trachea midline. Supple, full range of motion, no JVD Cardiac: regular rhythm rate with no murmurs all over the precordium. Respiratory: Equal breath sounds bilaterally, no tachypnea, no wheezing ,rub or rales, Chest wall is symmetric and without deformity. Gastrointestinal: Abdomen symmetric, non-distended, soft, non-tender, normal bowel sounds x4 quadrant, normoactive, no hepatosplenomegaly Musculoskeletal: Bilateral lower extremity: No pedal edema, no cyanosis, contractures present, no sensations, atrophy noted, power 0/5, tone 0 Neurological: No focal neurological deficits Coagulation Studies Laboratory Tests Test 02/26/25 14:21 Prothrombin Time 12.2 SECONDS (9.0-12.0) H INR International Normalized Ratio 1.2 INR Coagulation Comments Advance Care Planning Advanced Care plannin - 30 Minutes Assessment Assessment The patient is a 74-year-old male admitted for altered mental status, severe symptomatic anemia, and suspected gastrointestinal bleeding. His kufgdqzw-fv-ozp reported altered mental sensorium, weakness and fatigue but denies having abdominal pain, nausea, vomiting, or black/tarry stools. No overt hematemesis or hematochezia has been observed. The patient has been compliant with NPO orders since midnight in preparation for endoscopy today. Plan Plan Metabolic encephalopathy secondary to recurrent UTIs Complicated UTI (CAUTI) (recurrent history) Outpatient records show Infection with Resistant Pseudomonas: History of positive blood cultures for candidemia at [facility] Likely multifactorial: symptomatic anemia (Hb 4.7 g/dL), ongoing infection (UTI), and possible dehydration. No focal neurologic deficits to suggest acute stroke or intracranial pathology. Diagnostics: Monitor CBC, CMP,and consider head CT if no improvement or neurologic symptoms emerge. Management: Supportive care with intravenous hydration and correction of anemia. Continue close neurologic monitoring. Chronic indwelling catheter is a likely source. Current UTI evidenced by symptomatic presentation, positive urinalysis, and recurrent episodes in history. Replace indwelling catheter if necessary. Positive urinalysis with leukocyte esterase and nitrites; urine cultures pending. History of meropenem-resistant Pseudomonas infection per ID. Started on ceftolozane-tazobactam per Dr. Toledo, ID. Per ID, patient was treated with fluconazole at [facility] for candidemia Repeat blood cultures ordered here 02/28/2025: Blood cultures negative until now Continue ceftolozane and tazobactam Urine cultures at [facility] showed multidrug resistant Pseudomonas, only sensitive to tobramycin 03/01/2025: Had a conversation with today, she claimed that patient needs additional 5 days of IV antibiotic So patient will receive ceftriaxone and tazobactam until 03/05/2025 Case management on board, referrals have been made for transferred to rehab center Severe Symptomatic Anemia: Likely secondary to upper GI bleed. Positive stool occult blood supports a gastrointestinal source. Stable post-transfusion with hemoglobin trending upwards. Suspected GI Bleed: Endoscopy today to identify and potentially treat the source. Plan: EGD today to evaluate for upper GI bleed. Continue pantoprazole infusion. Daily CBC and CMP monitoring. Transfuse PRBCs as needed to maintain hemoglobin >7 g/dL. 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 03/01/2025: Continue Protonix IV 40 mg b.i.d. Patient will be discharged on ferrous sulfate, oral on discharge Duodenal biopsy results showed: HETEROTOPIC GASTRIC MUCOSA. NEGATIVE FOR DYSPLASIA AND CARCINOMA. MEETA, prerenal- possibly vasomotor nephropathy Resolved Paroxysmal atrial fibrillation Gagan Vasc score 3 Currently in sinus rhythm. Hold Xarelto until further evaluation 02/28/2025: Restarted Xarelto 10 mg daily from tomorrow, we will monitor hemoglobin post initiation of Xarelto 03/01/2025: Hemoglobin has been stable and patient received Xarelto today. So we will continue his Xarelto and see how his hemoglobin trends during this hospital stay Hyperlipidemia On rosuvastatin 20 mg daily. Continue atorvastatin during his hospital stay here Depression Continue buspirone, duloxetine Severe malnutrition Registered Dietitian Cristopher Dixon recommendations are ordered DVT Prophylaxis: Sequential compression devices (SCDs). Prognosis: Guarded. Disposition: Likely discharged in 1/2 days back to a rehab center Yesi Foster MD Internal Medicine Resident, PGY-2 Disposition: Rehab Date of Service: Mar 01, 2025 Billing Provider: MARIO CASTRO DO Common Visit Codes: [id number] INP/OBS CARE(HIGH) YESI FOSTER, RES Mar 01, 2025 16:52 MARIO CASTRO DO Mar 01, 2025 19:36
--- NOTE | 2025-03-01 22:32 | PROGRESS NOTE ---
Progress Note ID Providers to CC ~ Progress Note Progress Note: Antibiotic Days Zerbaxa 2 Lines PIV Micro 02/26 Blood- ngtd 02/26 Urine- MDR Pseudomonas Subjective: Patient is a 74 year old male with past medical history of C Diff who I recently met in consultation at [facility] for Candidemia. He was discharged home to complete a course of Fluc and that organism does not seem to have grown again (at 72 hours). He was sent to [facility] on 02/26 for altered mental status. He was admitted for sepsis and a history of MDR Pseudomonas was recognized in his urine. When I was called for hte consultation, I did get Zerbaxa started based on that history. By the time of my consult, patient seems to be back to his baseline mental status (still confused over his menu and how to use the phone). He has no other obvious sources. Objective Vitals: Afebrile, 75, 14, 145/75, 98% on RA Alert, NAD No oral lesions Regular Clear anteriorly Soft, nontender No rash PIV ok Laboratory Tests 03/01/25 06:04 02/26 CXR No acute cardiopulmonary disease. Assessment // Complicated UTI due to MDR Pseudomonas // Neurogenic bladder with miller // Paraplegia // Recent Candidemia // Hx CDI // NKDA Plan -Continue Zerbaxa x 7 day total course -2D echo since the last one done at [facility] was suboptimal -Follow up pending cultures -Monitor mental status, Cr -Dispo planning: LTAC -Thank you for the consult, will continue to follow GAL RICE DO Mar 01, 2025 22:32
[2025-03-02] VITALS (8 sets, daily range): BP systolic 118–170; BP diastolic 63–95; PULSE 73–108; RESP 12–18; TEMP 97–97.6; O2SAT 95–98
[2025-03-02 06:14] LABS: MEAN PLATELET VOLUME 7.0 FL (7.4-10.4); RED CELL DISTRIBUTION WIDTH 17.4 % (11.5-14.5)
[2025-03-02 06:27] LABS: CREATININE 1.03 MG/DL (0.60-1.10); TOTAL CARBON DIOXIDE 26.6 MMOL/L (24-32); eCRCL 50 ML/MIN; eGFR 70 ML/MIN
[2025-03-02] MEDS ORDERED: magnesium sulf-water 2g/50mL 50 ML IV PRN (08:20)
[2025-03-02] MEDS ORDERED: potassium Cl 40MEQ/1/2NS 520ml 520 ML IV PRN (08:20)
[2025-03-02] MEDS ORDERED: magnesium sulf-water 4G/100mL 100 ML IV PRN (08:20)
[2025-03-02] MEDS: potassium Cl 20 mEq SR tablet PO PRN ×2 (08:30)
[2025-03-02] MEDS: HYDROcodone/acetaminophen 10/325mg tab PO PRN (13:45)
--- NOTE | 2025-03-02 14:07 | CARDIOLOGY REPORT ---
APPROVED REPORT EXAM: Limited 2D, Doppler, and color-flow Echocardiogram. Patient Location: 3010A Blood Pressure: 118/63 mmHg Heart Rate: 75 bpm Indications Rule Out Endocarditis HX of Atrial Fibrillation NO INSEAMER NO Previous ECHO 2D Dimensions LA Diam2.8 cm IVSd 1.2 (0.7-1.1cm) LVDd 3.9 cm PWd 1.1 (0.7-1.1cm) IVSs 1.9 (0.8-1.2cm) LVDs 2.1 (2.5-4.0cm) PWs 1.7 (0.8-1.2cm) LVOT Diameter 2.00 (1.8-2.4cm) LVEF(%) 78.6 (>50%) FS (%) 46.6 % SV 52.7 ml CO 4.0 L/min Aortic Valve AoV Peak Alexandr. 91.6 cm/s AoV VTI 20.5 cm AO Peak GR. 3.4 mmHg AO Mean GR. 2 mmHg LVOT VTI 16.85 cm LVOT Peak Alexandr. 69.5 cm/s PATRICK(VTI)/BSA 2.58 cm2/m2 PATRICK (VTI) 2.58 cm2 Mitral Valve MV E Velocity 54.3 cm/s MV Peak Gr. 2 mmHg MV DECEL TIME 152 ms MV A Velocity 67.7 cm/s MV PHT 64 ms E/A Ratio 0.8 MVA (PHT) 3.44 cm2 MV VMax76.0 cm/s TDI Lateral E' P. V8.29 cm/s E/Lateral E' 6.6 Tricuspid Valve TR P. Velocity 51 cm/s RAP ESTIMATE 10 mmHg TR Peak Gr. 1 mmHg RVSP 11 mmHg LEFT VENTRICLE The left ventricle is normal size with mild proximal septal thickening. Overall systolic function is normal. LVEF is 65-70%. RIGHT VENTRICLE Right ventricle is grossly normal in size and function. ATRIA The left atrium size is normal. AORTIC VALVE Aortic valve is probably trileaflet with mild sclerosis. No stenosis. No insufficiency. No vegetation seen. MITRAL VALVE Mild mitral annular calcification without stenosis. Trace regurgitation. No vegetation seen. TRICUSPID VALVE Tricuspid valve is grossly normal in structure with trace regurgitation. No vegetation seen. PULMONIC VALVE Pulmonic valve is not well visualized. GREAT VESSELS Aortic root is grossly normal in size. IVC was not visualized. PERICARDIUM Normal pericardium. No effusion. Other Information Study Quality: Technically Difficult due to body habitus
[2025-03-02] MEDS ORDERED: sodium ferric gluc complex inj 125 MG in normal saline 100ml IV soln 100 ML IV ONE (17:20)
--- NOTE | 2025-03-02 17:22 | PROGRESS NOTE- Residence ---
Progress Note - Resident Providers to CC Resident Creating Document: YESI FOSTER RES ~ Antibiotic Timeout Antibiotic Ordered?: Yes Subjective Patient was seen and examined at bedside, he was confused again today. Was only oriented to person but not time and place. Objective Vital Signs Date Time Temp Pulse Resp B/P (MAP) Pulse Ox O2 Delivery O2 Flow Rate FiO2 03/02/25 13:45 18 03/02/25 11:00 97.3 73 170/95 (120) 95 Room Air 03/02/25 08:00 0.0 Result Diagram: 03/02/25 0537 03/02/25 0537 Awake , thin built, disoriented, not allow HEENT: Atraumatic, normocephalic, EOMI, anicteric sclera ; pale conjunctiva Neck: Trachea midline. Supple, full range of motion, no JVD Cardiac: regular rhythm rate with no murmurs all over the precordium. Respiratory: Equal breath sounds bilaterally, no tachypnea, no wheezing ,rub or rales, Chest wall is symmetric and without deformity. Gastrointestinal: Abdomen symmetric, non-distended, soft, non-tender, normal bowel sounds x4 quadrant, normoactive, no hepatosplenomegaly Musculoskeletal: Bilateral lower extremity: No pedal edema, no cyanosis, contractures present, no sensations, atrophy noted, power 0/5, tone 0 Neurological: No focal neurological deficits Coagulation Studies Laboratory Tests Test 02/26/25 14:21 Prothrombin Time 12.2 SECONDS (9.0-12.0) H INR International Normalized Ratio 1.2 INR Coagulation Comments Advance Care Planning Advanced Care plannin - 30 Minutes Assessment Assessment The patient is a 74-year-old male admitted for altered mental status, severe symptomatic anemia, and suspected gastrointestinal bleeding. His [id number]-ibi reported altered mental sensorium, weakness and fatigue but denies having abdominal pain, nausea, vomiting, or black/tarry stools. No overt hematemesis or hematochezia has been observed. Plan Plan Metabolic encephalopathy secondary to recurrent UTIs Complicated UTI (CAUTI) (recurrent history) Outpatient records show Infection with Resistant Pseudomonas: History of positive blood cultures for candidemia at [facility] Likely multifactorial: symptomatic anemia (Hb 4.7 g/dL), ongoing infection (UTI), and possible dehydration. No focal neurologic deficits to suggest acute stroke or intracranial pathology. Diagnostics: Monitor CBC, CMP,and consider head CT if no improvement or neurologic symptoms emerge. Management: Supportive care with intravenous hydration and correction of anemia. Continue close neurologic monitoring. Chronic indwelling catheter is a likely source. Current UTI evidenced by symptomatic presentation, positive urinalysis, and recurrent episodes in history. Replace indwelling catheter if necessary. Positive urinalysis with leukocyte esterase and nitrites; urine cultures pending. History of meropenem-resistant Pseudomonas infection per ID. Started on ceftolozane-tazobactam per Dr. Toledo, ID. Per ID, patient was treated with fluconazole at [facility] for candidemia Repeat blood cultures ordered here 02/28/2025: Blood cultures negative until now Continue ceftolozane and tazobactam Urine cultures at [facility] showed multidrug resistant Pseudomonas, only sensitive to tobramycin 03/01/2025: Had a conversation with today, she claimed that patient needs additional 5 days of IV antibiotic So patient will receive ceftriaxone and tazobactam until 03/05/2025 Case management on board, referrals have been made for transferred to rehab center 03/02/2025: Continue antibiotics as above, pending transfer to a rehab center for continuation of IV antibiotic Physical therapy. Recommended transferred back to previous assisted living facility Severe Symptomatic Anemia: Likely secondary to upper GI bleed. Positive stool occult blood supports a gastrointestinal source. Stable post-transfusion with hemoglobin trending upwards. Suspected GI Bleed: Endoscopy today to identify and potentially treat the source. Plan: EGD today to evaluate for upper GI bleed. Continue pantoprazole infusion. Daily CBC and CMP monitoring. Transfuse PRBCs as needed to maintain hemoglobin >7 g/dL. 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 03/01/2025: Continue Protonix IV 40 mg b.i.d. 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 NEGATIVE FOR DYSPLASIA AND CARCINOMA. MEETA, prerenal- possibly vasomotor nephropathy Resolved Paroxysmal atrial fibrillation Gagan Vasc score 3 Currently in sinus rhythm. Hold Xarelto until further evaluation 02/28/2025: Restarted Xarelto 10 mg daily from tomorrow, we will monitor hemoglobin post initiation of Xarelto 03/01/2025: Hemoglobin has been stable and patient received Xarelto today. So we will continue his Xarelto and see how his hemoglobin trends during this hospital stay 03/02/2025: Hemoglobin stable at 8.8 Hyperlipidemia On rosuvastatin 20 mg daily. Continue atorvastatin during his hospital stay here Depression Continue buspirone, duloxetine Severe malnutrition Registered Dietitian Cristopher Dixon recommendations are ordered Hypertension Due to high blood pressures all through the hospital stay, initially we thought it was secondary to pain However no further improvement, hence initiated losartan 50 mg daily, we will titrate as needed DVT Prophylaxis: Sequential compression devices (SCDs). Prognosis: Guarded. Disposition: Rehab center to continue IV antibiotics Yesi Foster MD Internal Medicine Resident, PGY-2 Date of Service: Mar 02, 2025 Billing Provider: RENA JONES MD,YESI, RES Mar 02, 2025 17:21
--- NOTE | 2025-03-02 17:30 | PROGRESS NOTE- Residence ---
Progress Note - Resident Providers to CC ~ Objective Vital Signs Date Time Temp Pulse Resp B/P (MAP) Pulse Ox O2 Delivery O2 Flow Rate FiO2 03/02/25 13:45 18 03/02/25 11:00 97.3 73 170/95 (120) 95 Room Air 03/02/25 08:00 0.0 Result Diagram: 03/02/25 0537 03/02/25 0537 Coagulation Studies Laboratory Tests Test 02/26/25 14:21 Prothrombin Time 12.2 SECONDS (9.0-12.0) H INR International Normalized Ratio 1.2 INR Coagulation Comments Advance Care Planning Advanced Care plannin - 30 Minutes YESI FOSTER, RES Mar 02, 2025 17:30
[2025-03-03] VITALS (8 sets, daily range): BP systolic 125–161; BP diastolic 63–88; PULSE 73–109; RESP 12–16; TEMP 96.9–97.8; O2SAT 92–100
[2025-03-03 07:23] LABS: MEAN PLATELET VOLUME 7.0 FL (7.4-10.4); RED CELL DISTRIBUTION WIDTH 18.0 % (11.5-14.5)
[2025-03-03 07:37] LABS: CREATININE 0.96 MG/DL (0.60-1.10); TOTAL CARBON DIOXIDE 26.5 MMOL/L (24-32); eCRCL 54 ML/MIN; eGFR 76 ML/MIN
--- NOTE | 2025-03-03 14:14 | PROGRESS NOTE- Residence ---
Progress Note - Resident Providers to CC Resident Creating Document: MARIA TERESA RIOS RES CC: RENA JONES MD ~ Antibiotic Timeout Antibiotic Ordered?: Yes Subjective Patient was seen and examined at bedside, seemed pleasant but was still confused to time and place. Objective Vital Signs Date Time Temp Pulse Resp B/P (MAP) Pulse Ox O2 Delivery O2 Flow Rate FiO2 03/03/25 11:00 97.3 73 14 160/83 (108) 100 Room Air 03/03/25 08:00 0.0 Awake , thin built, disoriented HEENT: Atraumatic, normocephalic, EOMI, anicteric sclera ; pale conjunctiva Neck: Trachea midline. Supple, full range of motion, no JVD Cardiac: regular rhythm rate with no murmurs all over the precordium. Respiratory: Equal breath sounds bilaterally, no tachypnea, no wheezing ,rub or rales, Chest wall is symmetric and without deformity. Gastrointestinal: non-distended, soft, non-tender, normal bowel sounds x4 quadrant, normoactive, no hepatosplenomegaly Musculoskeletal: Bilateral lower extremity: No pedal edema, no cyanosis, contractures present, no sensations, atrophy noted, power 0/5, tone 0 Neurological: No focal neurological deficits Result Diagram: 03/03/25 0657 03/03/25 0657 Coagulation Studies Laboratory Tests Test 02/26/25 14:21 Prothrombin Time 12.2 SECONDS (9.0-12.0) H INR International Normalized Ratio 1.2 INR Coagulation Comments Assessment Assessment The patient is a 74-year-old male admitted for altered mental status, severe symptomatic anemia, and suspected gastrointestinal bleeding. His llgwvtmn-hf-jof reported altered mental sensorium, weakness and fatigue but denies having abdominal pain, nausea, vomiting, or black/tarry stools. No overt hematemesis or hematochezia has been observed. The patient has been compliant with NPO orders since midnight in preparation for endoscopy today. Plan Plan Metabolic encephalopathy secondary to recurrent UTIs Complicated UTI (CAUTI) (recurrent history) Outpatient records show Infection with Resistant Pseudomonas: History of positive blood cultures for candidemia at [facility] Likely multifactorial: symptomatic anemia (Hb 4.7 g/dL), ongoing infection (UTI), and possible dehydration. No focal neurologic deficits to suggest acute stroke or intracranial pathology. Diagnostics: Monitor CBC, CMP,and consider head CT if no improvement or neurologic symptoms emerge. Management: Supportive care with intravenous hydration and correction of anemia. Continue close neurologic monitoring. Chronic indwelling catheter is a likely source. Current UTI evidenced by symptomatic presentation, positive urinalysis, and recurrent episodes in history. Positive urinalysis with leukocyte esterase and nitrites; urine cultures pending. History of meropenem-resistant Pseudomonas infection per ID. Started on ceftolozane-tazobactam per Dr. Toledo, ID. Per ID, patient was treated with fluconazole at [facility] for candidemia Repeat blood cultures ordered here 02/28/2025: Blood cultures negative until now Continue ceftolozane and tazobactam Urine cultures at [facility] showed multidrug resistant Pseudomonas, only sensitive to tobramycin 03/01/2025: Had a conversation with today, she claimed that patient needs additional 5 days of IV antibiotic So patient will receive ceftriaxone and tazobactam until 03/05/2025 Case management on board, referrals have been made for transferred to rehab center 03/02/2025: Continue antibiotics as above, pending transfer to a rehab center for continuation of IV antibiotic Physical therapy. Recommended transferred back to previous assisted living facility. Severe Symptomatic Anemia: Likely secondary to upper GI bleed. Positive stool occult blood supports a gastrointestinal source. Stable post-transfusion with hemoglobin trending upwards. Suspected GI Bleed: Endoscopy today to identify and potentially treat the source. Plan: EGD today to evaluate for upper GI bleed. Continue pantoprazole infusion. Daily CBC and CMP monitoring. Transfuse PRBCs as needed to maintain hemoglobin >7 g/dL. 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 03/01/2025: Continue Protonix IV 40 mg b.i.d. 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 NEGATIVE FOR DYSPLASIA AND CARCINOMA. MEETA, prerenal- possibly vasomotor nephropathy Resolved Paroxysmal atrial fibrillation Gagan Vasc score 3 Currently in sinus rhythm. Hold Xarelto until further evaluation 02/28/2025: Restarted Xarelto 10 mg daily from tomorrow, we will monitor hemoglobin post initiation of Xarelto 03/01/2025: Hemoglobin has been stable and patient received Xarelto today. So we will continue his Xarelto and see how his hemoglobin trends during this hospital stay 03/02/2025: Hemoglobin stable at 8.8 Hyperlipidemia On rosuvastatin 20 mg daily. Continue atorvastatin during his hospital stay here Depression Continue buspirone, duloxetine Severe malnutrition Registered Dietitian has recommended normal textured diet with the patient. Speech therapy recommended clear diet initially place an order for re-evaluation of speech therapy so patient can be on regular diet once speech therapy clears Hypertension Due to high blood pressures all through the hospital stay, initially we thought it was secondary to pain However no further improvement, hence initiated losartan 50 mg daily. Patient's blood pressure continues to be high and amlodipine 10 mg has been initiated DVT Prophylaxis: Sequential compression devices (SCDs). Prognosis: Guarded. Disposition: Rehab center to continue IV antibiotics Maria Teresa Rios MD Internal Medicine Resident, PGY-1 Date of Service: Mar 03, 2025 Billing Provider: RENA JONES MD, JAHNAVI, RES Mar 03, 2025 14:14
[2025-03-04] VITALS (7 sets, daily range): BP systolic 132–159; BP diastolic 73–92; PULSE 65–113; RESP 12–21; TEMP 97–97.8; O2SAT 97–100
[2025-03-04 06:30] LABS: MEAN PLATELET VOLUME 6.8 FL (7.4-10.4); RED CELL DISTRIBUTION WIDTH 17.6 % (11.5-14.5)
[2025-03-04 07:00] LABS: CREATININE 0.91 MG/DL (0.60-1.10); TOTAL CARBON DIOXIDE 26.6 MMOL/L (24-32); eCRCL 57 ML/MIN; eGFR 81 ML/MIN
--- NOTE | 2025-03-04 15:51 | PROGRESS NOTE- Residence ---
Progress Note - Resident Providers to CC Resident Creating Document: YESI LIMON RES ~ Antibiotic Timeout Antibiotic Ordered?: Yes Subjective Patient was seen and examined at bedside, brother was at bedside and claims that this was not his baseline. Patient was still confused and was not oriented to time place person. Objective Vital Signs Date Time Temp Pulse Resp B/P (MAP) Pulse Ox O2 Delivery O2 Flow Rate FiO2 03/04/25 12:03 110 16 136/73 (94) 99 Room Air 03/04/25 06:00 97.8 03/03/25 08:00 0.0 Result Diagram: 03/04/25 0608 03/04/25 0608 Awake , thin built, disoriented, not alert HEENT: Atraumatic, normocephalic, EOMI, anicteric sclera ; pale conjunctiva Neck: Trachea midline. Supple, full range of motion, no JVD Cardiac: regular rhythm rate with no murmurs all over the precordium. Respiratory: Equal breath sounds bilaterally, no tachypnea, no wheezing ,rub or rales, Chest wall is symmetric and without deformity. Gastrointestinal: Abdomen symmetric, non-distended, soft, non-tender, normal bowel sounds x4 quadrant, normoactive, no hepatosplenomegaly Musculoskeletal: Bilateral lower extremity: No pedal edema, no cyanosis, contractures present, no sensations, atrophy noted, power 0/5, tone 0 Neurological: No focal neurological deficits Coagulation Studies Laboratory Tests Test 02/26/25 14:21 Prothrombin Time 12.2 SECONDS (9.0-12.0) H INR International Normalized Ratio 1.2 INR Coagulation Comments Assessment Assessment The patient is a 74-year-old male admitted for altered mental status, severe symptomatic anemia, and suspected gastrointestinal bleeding. His epikrlib-cg-mof reported altered mental sensorium, weakness and fatigue but denies having abdominal pain, nausea, vomiting, or black/tarry stools. No overt hematemesis or hematochezia has been observed. Plan Plan Metabolic encephalopathy secondary to recurrent UTIs Complicated UTI (CAUTI) (recurrent history) Outpatient records show Infection with Resistant Pseudomonas: History of positive blood cultures for candidemia at [facility] Likely multifactorial: symptomatic anemia (Hb 4.7 g/dL), ongoing infection (UTI), and possible dehydration. No focal neurologic deficits to suggest acute stroke or intracranial pathology. Diagnostics: Monitor CBC, CMP,and consider head CT if no improvement or neurologic symptoms emerge. Management: Supportive care with intravenous hydration and correction of anemia. Continue close neurologic monitoring. Chronic indwelling catheter is a likely source. Current UTI evidenced by symptomatic presentation, positive urinalysis, and recurrent episodes in history. Positive urinalysis with leukocyte esterase and nitrites; urine cultures pending. History of meropenem-resistant Pseudomonas infection per ID. Started on ceftolozane-tazobactam per Dr. Toledo, ID. Per ID, patient was treated with fluconazole at [facility] for candidemia Repeat blood cultures ordered here 02/28/2025: Blood cultures negative until now Continue ceftolozane and tazobactam Urine cultures at [facility] showed multidrug resistant Pseudomonas, only sensitive to tobramycin 03/01/2025: Had a conversation with today, she claimed that patient needs additional 5 days of IV antibiotic So patient will receive ceftriaxone and tazobactam until 03/05/2025 Case management on board, referrals have been made for transferred to rehab center 03/02/2025: Continue antibiotics as above, pending transfer to a rehab center for continuation of IV antibiotic Physical therapy. Recommended transferred back to previous assisted living facility. 03/04/2025: Continue antibiotics until 03/05/2025, patient is still confused and his mentation has been fluctuating since the last 2 days Severe Symptomatic Anemia: Likely secondary to upper GI bleed. Positive stool occult blood supports a gastrointestinal source. Stable post-transfusion with hemoglobin trending upwards. Suspected GI Bleed: Endoscopy today to identify and potentially treat the source. Plan: EGD today to evaluate for upper GI bleed. Continue pantoprazole infusion. Daily CBC and CMP monitoring. Transfuse PRBCs as needed to maintain hemoglobin >7 g/dL. 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 03/01/2025: Continue Protonix IV 40 mg b.i.d. 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 NEGATIVE FOR DYSPLASIA AND CARCINOMA. MEETA, prerenal- possibly vasomotor nephropathy Resolved Paroxysmal atrial fibrillation Gagan Vasc score 3 Currently in sinus rhythm. Hold Xarelto until further evaluation 02/28/2025: Restarted Xarelto 10 mg daily from tomorrow, we will monitor hemoglobin post initiation of Xarelto 03/01/2025: Hemoglobin has been stable and patient received Xarelto today. So we will continue his Xarelto and see how his hemoglobin trends during this hospital stay 03/02/2025: Hemoglobin stable at 8.8 03/04/2025: Hemoglobin stable at 8.8 Hyperlipidemia On rosuvastatin 20 mg daily. Continue atorvastatin during his hospital stay here Depression Continue buspirone, duloxetine Severe malnutrition Patient is currently on clear liquid diet, speech therapy to evaluate tomorrow Hypertension Continue losartan 50 and amlodipine 10 mg, blood pressure is normal today DVT Prophylaxis: Sequential compression devices (SCDs). Prognosis: Guarded. Disposition: Discharge back to nursing facility after IV antibiotics Yesi Limon MD Internal Medicine Resident, PGY-2 Date of Service: Mar 04, 2025 Billing Provider: RENA JONES MD, GAURAV, RES Mar 04, 2025 15:51
[2025-03-04] MEDS: pantoprazole 40mg Tablet.DR PO SCH (20:11)
[2025-03-04] MEDS: magnesium Cl slow-release 64mg tablet PO PRN (20:12)
[2025-03-05] VITALS (8 sets, daily range): BP systolic 121–129; BP diastolic 58–71; PULSE 73–90; RESP 8–16; TEMP 97.6–98.3; O2SAT 96–99
[2025-03-05 07:30] LABS: MEAN PLATELET VOLUME 7.0 FL (7.4-10.4); RED CELL DISTRIBUTION WIDTH 18.4 % (11.5-14.5)
[2025-03-05 07:52] LABS: CREATININE 1.04 MG/DL (0.60-1.10); TOTAL CARBON DIOXIDE 22.5 MMOL/L (24-32); eCRCL 50 ML/MIN; eGFR 69 ML/MIN
[2025-03-05] MEDS: lactose-reduced food (Ensure Enlive) - 237ml bottle PO SCH (13:04)
--- NOTE | 2025-03-05 15:05 | PROGRESS NOTE- Residence ---
Progress Note - Resident Providers to CC Resident Creating Document: YESI LIMON RES ~ Antibiotic Timeout Antibiotic Ordered?: No Subjective Patient was seen and examined at bedside, patient was still confused and not oriented time place and person today Objective Vital Signs Date Time Temp Pulse Resp B/P (MAP) Pulse Ox O2 Delivery O2 Flow Rate FiO2 03/05/25 11:00 98.1 90 12 122/64 (83) 98 Room Air 03/05/25 08:00 0.0 Result Diagram: 03/05/25 0637 03/05/25 0637 Awake , thin built, disoriented, not alert HEENT: Atraumatic, normocephalic, EOMI, anicteric sclera ; pale conjunctiva Neck: Trachea midline. Supple, full range of motion, no JVD Cardiac: regular rhythm rate with no murmurs all over the precordium. Respiratory: Equal breath sounds bilaterally, no tachypnea, no wheezing ,rub or rales, Chest wall is symmetric and without deformity. Gastrointestinal: Abdomen symmetric, non-distended, soft, non-tender, normal bowel sounds x4 quadrant, normoactive, no hepatosplenomegaly Musculoskeletal: Bilateral lower extremity: No pedal edema, no cyanosis, contractures present, no sensations, atrophy noted, power 0/5, tone 0 Neurological: No focal neurological deficits Coagulation Studies Laboratory Tests Test 02/26/25 14:21 Prothrombin Time 12.2 SECONDS (9.0-12.0) H INR International Normalized Ratio 1.2 INR Coagulation Comments Advance Care Planning Advanced Care plannin - 30 Minutes Assessment Assessment The patient is a 74-year-old male admitted for altered mental status, severe symptomatic anemia, and suspected gastrointestinal bleeding. His lfsmksku-ke-obe reported altered mental sensorium, weakness and fatigue but denies having abdominal pain, nausea, vomiting, or black/tarry stools. No overt hematemesis or hematochezia has been observed. Plan Plan Metabolic encephalopathy secondary to recurrent UTIs Complicated UTI (CAUTI) (recurrent history) Outpatient records show Infection with Resistant Pseudomonas: History of positive blood cultures for candidemia at [facility] Sepsis secondary to CAUTI Likely multifactorial: symptomatic anemia (Hb 4.7 g/dL), ongoing infection (UTI), and possible dehydration. No focal neurologic deficits to suggest acute stroke or intracranial pathology. Diagnostics: Monitor CBC, CMP,and consider head CT if no improvement or neurologic symptoms emerge. Management: Supportive care with intravenous hydration and correction of anemia. Continue close neurologic monitoring. Chronic indwelling catheter is a likely source. Current UTI evidenced by symptomatic presentation, positive urinalysis, and recurrent episodes in history. Positive urinalysis with leukocyte esterase and nitrites; urine cultures pending. History of meropenem-resistant Pseudomonas infection per ID. Started on ceftolozane-tazobactam per Dr. Toledo, ID. Per ID, patient was treated with fluconazole at [facility] for candidemia Repeat blood cultures ordered here 02/28/2025: Blood cultures negative until now Continue ceftolozane and tazobactam Urine cultures at [facility] showed multidrug resistant Pseudomonas, only sensitive to tobramycin 03/01/2025: Had a conversation with today, she claimed that patient needs additional 5 days of IV antibiotic So patient will receive ceftriaxone and tazobactam until 03/05/2025 Case management on board, referrals have been made for transferred to rehab center 03/02/2025: Continue antibiotics as above, pending transfer to a rehab center for continuation of IV antibiotic Physical therapy. Recommended transferred back to previous assisted living facility. 03/04/2025: Continue antibiotics until 03/05/2025, patient is still confused and his mentation has been fluctuating since the last 2 days 03/05/2025: Patient completed the course of antibiotics today Severe Symptomatic Anemia: Likely secondary to upper GI bleed. Positive stool occult blood supports a gastrointestinal source. Stable post-transfusion with hemoglobin trending upwards. Suspected GI Bleed: Endoscopy today to identify and potentially treat the source. Plan: EGD today to evaluate for upper GI bleed. Continue pantoprazole infusion. Daily CBC and CMP monitoring. Transfuse PRBCs as needed to maintain hemoglobin >7 g/dL. 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 03/01/2025: Continue Protonix IV 40 mg b.i.d. 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 NEGATIVE FOR DYSPLASIA AND CARCINOMA. MEETA, prerenal- possibly vasomotor nephropathy Resolved Paroxysmal atrial fibrillation Gagan Vasc score 3 Currently in sinus rhythm. Hold Xarelto until further evaluation 02/28/2025: Restarted Xarelto 10 mg daily from tomorrow, we will monitor hemoglobin post initiation of Xarelto 03/01/2025: Hemoglobin has been stable and patient received Xarelto today. So we will continue his Xarelto and see how his hemoglobin trends during this hospital stay 03/02/2025: Hemoglobin stable at 8.8 03/04/2025: Hemoglobin stable at 8.8 03/05/2025: Hemoglobin stable at 9.2 Hyperlipidemia On rosuvastatin 20 mg daily. Continue atorvastatin during his hospital stay here Depression Continue buspirone, duloxetine Severe malnutrition Patient is currently on clear liquid diet, speech therapy to evaluate tomorrow 03/05/2025: Speech therapy to evaluate and advised to start the patient on mechanical chopped food and thin liquids. Hypertension Continue losartan 50 and amlodipine 10 mg, blood pressure is normal today DVT Prophylaxis: Xarelto Prognosis: Guarded. Disposition: Discharge back to nursing facility tomorrow Yesi Limon MD Internal Medicine Resident, PGY-2 Date of Service: Mar 05, 2025 Billing Provider: RENA JONES MD,YESI, RES Mar 05, 2025 15:05
[2025-03-05] MEDS ORDERED: magnesium sulf-water 4G/100mL 100 ML IV PRN (18:35)
[2025-03-05] MEDS ORDERED: magnesium sulf-water 2g/50mL 50 ML IV PRN (18:35)
[2025-03-05] MEDS ORDERED: potassium Cl 20 mEq SR tablet PO PRN (18:35)
[2025-03-05] MEDS ORDERED: potassium Cl 40MEQ/1/2NS 520ml 520 ML IV PRN (18:35)
[2025-03-05] MEDS: K and/or MAG REPLACEMENT MC SCH (20:00)
[2025-03-05] MEDS: magnesium Cl slow-release 64mg tablet PO PRN (21:09)
[2025-03-05] MEDS: potassium Cl 20 mEq SR tablet PO PRN (21:10)
[2025-03-06 02:00] VITALS: BP 141/75; PULSE 70; RESP 12; TEMP 97.6; O2SAT 94
[2025-03-06 05:52] LABS: MEAN PLATELET VOLUME 6.9 FL (7.4-10.4); RED CELL DISTRIBUTION WIDTH 18.8 % (11.5-14.5)
[2025-03-06 06:00] VITALS: BP 163/86; PULSE 67; RESP 20; TEMP 97.8; O2SAT 100
[2025-03-06 06:19] LABS: CREATININE 0.83 MG/DL (0.60-1.10); TOTAL CARBON DIOXIDE 23.8 MMOL/L (24-32); eCRCL 62 ML/MIN; eGFR 90 ML/MIN
[2025-03-06 08:00] VITALS: RESP 20; O2SAT 100
[2025-03-06 08:37] VITALS: BP_SYST 163; PULSE 67
[2025-03-06 09:36] VITALS: RESP 18
[2025-03-06] MEDS ORDERED: NOR5T PO (09:56)
[2025-03-06] MEDS ORDERED: FERR-39 PO (09:56)
[2025-03-06] MEDS ORDERED: LOSA50TA64 PO (09:56)
[2025-03-06] MEDS ORDERED: LACT1CAP74 PO (09:56)
[2025-03-06] MEDS ORDERED: PANT-47 PO (09:56)
--- NOTE | 2025-03-06 17:56 | DISCHARGE SUMMARY-Residence ---
Discharge Summary Providers to CC Resident Creating Document: YESI FOSTER, RES ~ Discharge Summary Admission Diagnosis: Severe anemia, UTI Hospital Course DATE OF ADMISSION: 02/26/2025 DATE OF DISCHARGE: 03/06/2025 Discharge Diagnosis\Comment: Metabolic encephalopathy secondary to recurrent UTIs Complicated UTI (CAUTI) (recurrent history) Outpatient records show Infection with Resistant Pseudomonas History of positive blood cultures for candidemia Sepsis secondary to CAUTI Severe Symptomatic Anemia Likely secondary to upper GI bleed. Upper GI bleed secondary to unknown cause MEETA, prerenal- possibly vasomotor nephropathy Paroxysmal atrial fibrillation Gagan Vasc score 3 Hyperlipidemia Depression Severe malnutrition Hypertension Operations\Procedures: None Consultants: Infectious diseases Complications: None Condition on DC: Stable for transfer New Medications: Ferrous Sulfate (Ferrous Sulfate) 325 Mg (65 Mg Iron) Tablet 1 TAB PO Q12H for 30 Days, #60 TAB 0 Refills Lactobacillus Rhamnosus GG (Culturelle) 15 Billion Cell Cap.sprink 1 CAP PO DAILY for 30 Days, #30 CAP 0 Refills Pantoprazole Sodium (PROTONIX tablet) 40 Mg Tablet.dr 40 MG PO BID for 15 Days, #30 TAB.SR Amlodipine Besylate (Amlodipine Besylate) 5 Mg Tablet 10 MG PO DAILY for 30 Days, #60 TAB Losartan Potassium (Losartan Potassium) 50 Mg Tablet 50 MG PO DAILY for 30 Days, #30 TAB Continued Medications: Aspirin (Aspirin) 81 Mg Tab.chew 1 TAB PO DAILY Calcium Carbonate/Vitamin D3 (Oyster Shell Calcium +D Tablet) 500 Mg Calcium-5 Mcg (200 Unit) Tablet 1 TAB PO DAILY, TAB 0 Refills Cholecalciferol (Vitamin D3) (Vitamin D3) 50 Mcg (2000 Unit) Tablet 1 TAB PO BID, TAB 0 Refills Duloxetine HCl (Duloxetine HCl) 60 Mg Capsule.dr 1 CAP PO DAILY Fluconazole (Fluconazole) 200 Mg Tablet 2 TAB PO DAILY take for 10 days, unk when pt started med Folic Acid* (Folic Acid*) Y Tab 1 TAB PO DAILY Hydrocodone Bit/Acetaminophen (Hydrocodon-Acetaminophen 5-325) 5 Mg-325 Mg Tablet 1 TAB PO Q6H PRN for pain [lidocaine PA pad4%] () 2 PATCH TP QAM Melatonin (Melatonin) 3 Mg Tablet 3 TAB PO HS for sleep, TAB 0 Refills Methenamine Hippurate (Methenamine Hippurate) 1 Gram Tablet 1 TAB PO BID Omeprazole (Prilosec) 40 Mg Capsule 1 CAP PO DAILY, CAP [onedailytab/minerals] () 1 TAB PO DAILY Polyethylene Glycol 3350 ([id number]) 17 Gram/Dose Powder 17 GM PO DAILY for constipation, GM 0 Refills Pregabalin (Pregabalin) 25 Mg Capsule 1 CAP PO BID Rivaroxaban (Xarelto) 10 Mg Tablet 1 TAB PO DAILY Rosuvastatin Calcium (Rosuvastatin Calcium) 20 Mg Tablet 1 TAB PO HS Sennosides/Docusate Sodium (Senna Plus 8.6-50 mg Tablet) 8.6 Mg-50 Mg Tablet 1 TAB PO DAILY, TAB 0 Refills [sod chloride 1 gm] () 1 TAB PO DAILY Tamsulosin Hcl* (Flomax*) 0.4 Mg Cap.sr.24h 1 CAP PO BID Discharge Summary: HPI as per admitting physician: This is a 74-year-old male with a significant medical history of 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 According to history provided by his kcpnbcik-mu-lhs, Sonya ( Contact Number: [phone]), his confusion began acutely a few days prior and has progressively worsened, and was transferred for further evaluation. The patients baseline mental status was described as alert and oriented to person, though requiring assistance with all activities of daily living. The patients history of paraplegia began approximately one year ago when he experienced acute paralysis of the lower extremities, later attributed to a spinal cord infarction. Three months following this event, he was diagnosed with an appended spinal cord, confirmed through imaging, and underwent surgical intervention at [facility]. Postoperatively, the patient developed permanent incontinence of both stool and urine, requiring the placement of a chronic indwelling urinary catheter. The incontinence has been complicated by recurrent UTIs, typically managed with antibiotics during his subsequent stays at long-term care facilities, including [facility] and [facility]. On presentation, the patient was found to have a hemoglobin of 4.7 g/dL, significantly below his baseline. A stool occult blood test was positive, raising concern for gastrointestinal bleeding. Patients stools have been brown and formed, without visible melena or hematochezia. Sonya also described the patients challenges, particularly related to managing his chronic catheter and recurring UTIs. Despite treatment, his altered mental status was episodic and urinary symptoms worsened. On arrival, the patient was altered but arousable, with dry mucous membranes, tachycardia, and low blood pressure, consistent with anemia and possible dehydration. No overt signs of infection or sepsis were noted. Hospital course: The patient is a 74-year-old male with a history of paroxysmal atrial fibrillation, chronic indwelling urinary catheter, recurrent UTIs with multidrug-resistant organisms, anemia, and hyperlipidemia, who was admitted for altered mental status and severe symptomatic anemia, with a suspected upper gastrointestinal bleed. On admission, the patient was noted to be confused and disoriented to time, place, and person. His family reported progressive weakness and confusion but denied any overt gastrointestinal bleeding. Stool occult blood was positive, and initial hemoglobin was severely low at 4.7 g/dL, prompting concern for a GI source of bleeding. The patient was transfused with packed red blood cells and initiated on IV pantoprazole. An EGD was performed, revealing a duodenal bulb mass (biopsied), multiple gastric polyps (snared), and an edematous pre-pyloric region. Biopsy results later revealed heterotopic gastric mucosa with no evidence of dysplasia or carcinoma. Ferric carboxymaltose (Ferrlicit) 125 mg IV daily was started, and once stable, he was transitioned to oral iron supplementation. Hemoglobin gradually improved and stabilized around 9.2 by discharge. Concurrent with anemia, the patient was found to have a complicated UTIpresumed catheter-associatedwith sepsis and metabolic encephalopathy. He had a history of multidrug-resistant Pseudomonas aeruginosa and past candidemia per prior records. Urinalysis on admission was positive for leukocyte esterase and nitrites; urine culture later confirmed Pseudomonas sensitive only to tobramycin. Infectious disease was consulted, and the patient was initiated on ceftolozane-tazobactam per their recommendations. Fluconazole was also restarted based on prior candidemia history. Serial blood cultures remained negative during hospitalization. Dr. Toledo recommended a full 5-day course of IV antibiotics, completed on 03/05/2025. Mentation remained fluctuating throughout admission, likely due to multifactorial causes including infection, anemia, and chronic encephalopathy. Despite supportive care with hydration and transfusion, the patient remained disoriented at the bedside as of discharge planning. Acute kidney injury on admission was presumed prerenal (possibly vasomotor) and has since resolved with fluid resuscitation. Creatinine trended back to baseline by mid-hospital course. The patient also has a known history of paroxysmal AFib (JASON?DS?-VASc = 3). He was in sinus rhythm throughout admission. Xarelto was initially held but then restarted on 02/28/2025 once hemoglobin was stable. No further drop in hemoglobin was noted, and Xarelto was continued safely through discharge. The patient has underlying hyperlipidemia and was continued on atorvastatin during his hospital stay. His chronic depression was managed with home medicationsbuspirone and duloxetinewhich were continued without adjustment. He was also noted to be severely malnourished on admission and was initially maintained on a clear liquid diet. Speech therapy was consulted and, on 03/05/2025, recommended advancing diet to mechanical chopped food and thin liquids. Hypertension remained well controlled with his home regimen of losartan 50 mg and amlodipine 10 mg daily. Throughout hospitalization, his vitals were stable, oxygen saturation remained >95% on room air, and he did not require supplemental oxygen. Given his ongoing cognitive impairment, need for nutritional and physical rehabilitation, and IV antibiotic completion, discharge planning was coordinated with case management. The patient is to return to his prior nursing facility, with appropriate follow-up and medication reconciliation. His overall prognosis remains guarded. Physical examination today: Awake , thin built, disoriented, not alert HEENT: Atraumatic, normocephalic, EOMI, anicteric sclera ; pale conjunctiva Neck: Trachea midline. Supple, full range of motion, no JVD Cardiac: regular rhythm rate with no murmurs all over the precordium. Respiratory: Equal breath sounds bilaterally, no tachypnea, no wheezing ,rub or rales, Chest wall is symmetric and without deformity. Gastrointestinal: Abdomen symmetric, non-distended, soft, non-tender, normal bowel sounds x4 quadrant, normoactive, no hepatosplenomegaly Musculoskeletal: Bilateral lower extremity: No pedal edema, no cyanosis, contractures present, no sensations, atrophy noted, power 0/5, tone 0 Neurological: No focal neurological deficits Laboratory Tests Test 03/05/25 06:37 03/06/25 05:26 White Blood Count 6.2 X10'3 6.6 X10'3 Red Blood Count 3.20 X10'6 3.32 X10'6 Hemoglobin 9.2 g/dl 9.6 g/dl Hematocrit 27.4 % 28.7 % Mean Corpuscular Volume 85.6 FL 86.5 FL Mean Corpuscular Hemoglobin 28.9 PG 28.9 PG Mean Corpuscular Hemoglobin Concent 33.7 g/dL 33.4 g/dL Red Cell Distribution Width 18.4 % 18.8 % Platelet Count 356 X10'3 331 X10'3 Mean Platelet Volume 7.0 FL 6.9 FL Neutrophils (%) (Auto) 53.7 % 61.2 % Lymphocytes (%) (Auto) 37.4 % 30.7 % Monocytes (%) (Auto) 6.7 % 5.7 % Eosinophils (%) (Auto) 1.8 % 1.9 % Basophils (%) (Auto) 0.4 % 0.5 % Neutrophils # (Auto) 3.3 X10'3 4.0 X10'3 Lymphocytes # (Auto) 2.3 X10'3 2.0 X10'3 Monocytes # (Auto) 0.4 X10'3 0.4 X10'3 Eosinophils # (Auto) 0.1 X10'3 0.1 X10'3 Basophils # (Auto) 0.0 X10'3 0.0 X10'3 CBC Comment Sodium Level 138 MMOL/L 134 MMOL/L Potassium Level 3.1 MMOL/L 3.7 MMOL/L Chloride Level 106 MMOL/L 101 MMOL/L Carbon Dioxide Level 22.5 MMOL/L 23.8 MMOL/L Anion Gap 10 9 Blood Urea Nitrogen 8 MG/DL 7 MG/DL Creatinine 1.04 MG/DL 0.83 MG/DL Estimated GFR/1.73 m2 69 ML/MIN 90 ML/MIN BUN/Creatinine Ratio 7.7 8.4 Glucose Level 88 MG/DL 78 MG/DL Calcium Level 8.3 MG/DL 8.4 MG/DL Magnesium Level 1.4 MG/DL 1.6 MG/DL Total Bilirubin 0.3 MG/DL 0.3 MG/DL Aspartate Amino Transf (AST/SGOT) 16 U/L 15 U/L Alanine Aminotransferase (ALT/SGPT) < 6 U/L 6 U/L Alkaline Phosphatase 102 IU/L 107 IU/L Total Protein 7.7 G/DL 8.2 G/DL Albumin 1.6 G/DL 1.8 G/DL Globulin 6.1 G/DL 6.4 G/DL Albumin/Globulin Ratio 0.3 0.3 Chemistry Comments Advise on discharge: - follow up with PCP in 1 week with repeat labs, hemoglobin to see if there is any further drop; patient's hemoglobin has been stable all through his hospital stay post EGD - he completed his course of antibiotics here in the hospital and needs no further antibiotics on discharge. - follow medications as prescribed - patient needs assistance for his daily basic activities until his mentation is stabilized - speech therapy evaluated and patient was able to swallow food, recommended mechanically chopped food and thin liquids. - call 911/go to the nearby ED if any emergencies *Problems/Diagnosis: (1) Altered mental status Status: Acute (2) Acute urinary tract infection Status: Acute (3) Anemia requiring transfusions Status: Acute (4) Anticoagulated on Xarelto Status: Acute Total Time Spent on D/C: Up to 30 Minutes Date of Service: Mar 06, 2025 Billing Provider: RENA JONES MD, GAURAV, RES Mar 06, 2025 17:56
== END 2025-03-06 11:15 | disposition home health service (06) | DRG 698 ==
LOC: ER 13:57 → ED HOLD 15:58 → PCU 3S 17:35
PROVIDERS: ADMIT Family Medicine; ATTEND Family Medicine
PROC: 30233N1 Transfusion of Nonautologous Red Blood Cells into Peripheral Vein, Percutaneous Approach (ICD-10-PCS; principal; 2025-02-26)
PROC: 0DB98ZX Excision of Duodenum, Via Natural or Artificial Opening Endoscopic, Diagnostic (ICD-10-PCS; 2025-02-27)
PROC: 0DB78ZX Excision of Stomach, Pylorus, Via Natural or Artificial Opening Endoscopic, Diagnostic (ICD-10-PCS; 2025-02-27)
PROC: 0DB68ZX Excision of Stomach, Via Natural or Artificial Opening Endoscopic, Diagnostic (ICD-10-PCS; 2025-02-27)
PROC: 0DB68ZZ Excision of Stomach, Via Natural or Artificial Opening Endoscopic (ICD-10-PCS; 2025-02-27)
DX: T83.511A Infection and inflammatory reaction due to indwelling urethral catheter, initial encounter (principal); A41.9 Sepsis, unspecified organism; E43 Unspecified severe protein-calorie malnutrition; G93.41 Metabolic encephalopathy; N17.0 Acute kidney failure with tubular necrosis; K25.4 Chronic or unspecified gastric ulcer with hemorrhage; G82.20 Paraplegia, unspecified; Z68.1 Body mass index [BMI] 19.9 or less, adult; Z16.24 Resistance to multiple antibiotics; E11.9 Type 2 diabetes mellitus without complications; N40.0 Benign prostatic hyperplasia without lower urinary tract symptoms; I48.0 Paroxysmal atrial fibrillation; B96.5 Pseudomonas (aeruginosa) (mallei) (pseudomallei) as the cause of diseases classified elsewhere; N31.9 Neuromuscular dysfunction of bladder, unspecified; F32.A Depression, unspecified; K31.89 Other diseases of stomach and duodenum; D50.9 Iron deficiency anemia, unspecified; K31.7 Polyp of stomach and duodenum; Y84.6 Urinary catheterization as the cause of abnormal reaction of the patient, or of later complication, without mention of misadventure at the time of the procedure; E86.0 Dehydration; G47.00 Insomnia, unspecified; Z86.73 Personal history of transient ischemic attack (TIA), and cerebral infarction without residual deficits; Z79.01 Long term (current) use of anticoagulants; Y92.89 Other specified places as the place of occurrence of the external cause
CPT/HCPCS: 36415; 36430; 43239; 71045; 80048; 80053; 80061; 81001; 82272; 82607; 82728; 82948; 83010; 83036; 83540; 83550; 83605; 83615; 83735; 83880; 84145; 84466; 84484; 85007; 85025; 85027; 85045; 85610; 85651; 86885; 86900; 86901; 86920; 87040; 87077; 87081; 87088; 87186; 88305; 92508; 92616; 93005; 93308; 96365; 97161; 97530; 99291; A5200; A6213; A6250; A6590; G0378; J0695; J0696; J2470; J2704; J2916; J3480; J7030; J7040; P9016